=== PATIENT | female | born 1985 | race Caucasian/White ===

== ENCOUNTER 2024-02-15 23:13 | Emergency (ER) | payer OTHER ==
--- OUTSIDE RECORDS SUMMARY | 2024-02-15 23:17 | XMS REPORT | Continuity of Care Document ---
Author Name Unknown Address [address] [facility] [address] [place] [address] [facility] thconnect Address [address] [facility]. [address] [place] [address] Care Team Providers Care Plastic Surgery Nurse Name Role Phone Evelny Medina Attending Clinician Unavailable Koko Morales Attending Clinician Don dcintransitionlmcobgyn Attending Clinician UnaBrandy Vergara Attending Clinician Unavail Derek Burrell Attending Clinician Unavailable Jazmín Sabillon Attending Clinician Unavailable Shelly Savage I Attending Clinician Serafin Ramirez Attending Clinician Lara Leone Attending Clinician Jessica Hathaway Attending Clinician Sally Petersen Attending Clinician Unavailable Serafin Garber Attending Clinician Brandy Junior Attending Clinician Unavail eliseo Payers Payer Name Policy Type Policy Number Effective Date Expirati on Date Source Self Pay P NONE Medicaid [id number] [facility] Problems Condition Name Condition Details Condition Category Status Onset Date Resolution Date Last Treatment Date Treating Clinician Comments Source Smoker Smoker Problem Active [facility] [id number] History of hypothyroi dism Problem Active [facility] [id number] Acquired hypothyroi dism Problem Active [facility] [id number] DANA (generaliz ed anxiety disorder) Problem Active [facility] [id number] Exposure to strep throat Problem Active [facility] Umbilical hernia Umbilical hernia Problem Active [facility] [id number] History of umbilical hernia Problem Active [facility] [id number] Painful menstrual periods Problem Active [facility] [id number] Mood disorder Problem Active [facility] Allergies, Adverse Reactions, Alerts Allergy Name Allergy Type Status Severity Reaction(s) Onset Date Inactive Date Treating Clinician Comments Source Penicill ins Allergy to substanc e Active 11-20 13:14: 03 [facility] amoxicil mignon Allergy to substanc e Active 11-20 13:14: 03 [facility] Penicill ins Allergy to substanc e Active 11-20 13:14: 03 [facility] Penicill ins DA Active U throat swelling 11-20 00:00: 00 [facility] [place] amoxicil mignon DA Active U throat swelling 11-20 00:00: 00 [facility] penicill in V penicill in V Active Unknown [facility] penicill in G penicill in G Active Unknown [facility] amoxicil mignon amoxicil mignon Active Unknown [facility] Social History Social Habit Start Date Stop Date Quantity Comments Source History of Tobacco Use [facility] Sex Assigned At 1985 00:00:00 1985 00:00:[address] [facility] Smoking Status Start Date Stop Date Source Unknown if ever smoked . [facility] Former Smoker 2021-02-22 00:00:00 2021-02-22 00:00:00 [facility] Medications Ordered Medication Name Filled Medication Name Start Date Stop Date Current Medication? Ordering Clinician Indication Dosage Frequency Signature (SIG) Comments Components Source Ondansetron 4 MG Ondansetron 4 MG 02-22 00:00: 00 No 1{table t_on_ e_tongu e_and_a llow_to _dissol ve} QID Ondansetro n [address] [facility] Cefdinir Cefdinir 00:00: 00 Yes Sally Lokey [address] [facility] Zithromax Z-Christopher Zithromax Z-Christopher 00:00: 00 Yes Sally Lokey 2 tablets on the first day, then 1 tablet daily for [address] [facility] Ativan Ativan 2017-09 00:00: 00 Yes Sally Lokey 1 tablet as needed [facility] Levothyroxi ne Sodium 02-13 13:58: 18 No 50MCG Every Morning [facility] Levothyroxi ne Sodium 02-12 23:00: 00 No 50MCG Every Morning [facility] Sed472/Iron Fum/Folic/D ocusate ( 19) 1 TABLET Tablet 02-12 23:00: 00 No 1TABLET Daily [facility] Levothyroxi ne Sodium Levothyroxi ne Sodium 01-01 00:00: 00 Yes Sally Lokey 1 tablet on an empty stomach in the morning [facility] Yes Sally Lokey [address] [facility] Levothyroxi ne Sodium Levothyroxi ne Sodium No Levothyrox ine Sodium [facility] Vital Signs Vital Name Observation Time Observation Value Comments S ource weight 2021-02-22 11:45:00 179.0 [lb_av] [facility] height 2021-02-22 11:45:00 64 [in_i] [facility] bmi 2021-02-22 11:45:00 30.72 kg/m2 [facility] heart rate 2021-02-22 11:45:00 75 /min [facility] temperature 2021-02-22 11:45:00 97.1 [degF] [facility] oximetry 2021-02-22 11:45:00 98 % [facility] respiratory rate 2021-02-22 11:45:00 18 /min [facility] blood pressure systolic 2021-02-22 11:45:00 131 mm[Hg] [facility] blood pressure diastolic 2021-02-22 11:45:00 80 mm[Hg] [facility] WEIGHT 2018-02-13 14:57:00 77.975807 kg HEIGHT 2018-02-13 14:57:00 162.56 cm Procedures Procedure Date / Time Performed Performing Clinicia n Source US Venous Doppler Lt Unilat 2021-09-08 14:50:00 [facility] Encounters Start Date/Time End Date/Time Encounter Type Admission Type Attending Clinicians Care Facility Care Department Encounter ID Source 2023-09-19 16:50:00 Outpatient Gema Medinay [facility] [id number] [facility] 2023-05-25 14:52:01 Outpatient Koko Morales [facility] HP[facility] [id number] [facility] 2023-03-23 10:19:00 Outpatient Carol Evelyn [facility] HP[facility] [id number] [facility] 2022-06-22 16:13:03 Outpatient lc.intransi tionlmcobgy n [facility] [id number] [facility], [facility] 2021-09-29 13:40:58 Outpatient STLS STLS [id number] [facility] 2021-09-29 13:17:00 Outpatient STLS [facility] [id number] [facility] 2021-09-29 11:16:04 Outpatient Brandy Hunter [facility] [id number] [facility] 2023-09-11 15:39:00 2023-09-11 17:25:00 Emergency ER Derek Loza [facility] [id number] [facility] 2023-09-11 15:39:00 2023-09-11 17:25:[address] [facility] [id number] [address] [place] [address] 2021-09-08 12:26:00 2021-09-08 16:15:00 Emergency ER Jazmín Sabillon [facility] [id number] [facility] 2021-09-08 12:26:00 2021-09-08 16:15:[address] [facility] [id number] [facility]) 2021-09-08 12:26:00 2021-09-08 16:15:00 Departed Emergency [id number] [facility] [id number] [facility]) 2021-02-22 00:00:00 2021-02-22 00:00:00 Office Visit, Est Pt., Level 3 [facility] [id number] [facility] 2021-02-18 21:04:00 2021-02-19 00:25:00 Emergency ER Shelly Savage [facility] [id number] [facility] 2021-01-12 10:56:00 2021-01-12 11:55:00 Emergency ER Serafin Charles [facility] [id number] [facility] 2020-10-01 11:05:00 2020-10-01 13:41:00 Emergency ER Lara Hennessy [facility] [id number] [facility] 2020-07-21 10:05:00 2020-07-21 10:06:00 Outpatient R Jessica Livingston [facility] [id number] [facility] 2019-11-30 11:39:00 2019-11-30 11:39:00 Outpatient R CherrySally [facility] [id number] [facility] 2019-11-30 11:15:00 2019-11-30 11:15:00 Outpatient [facility] [id number] [facility] 2018-02-23 06:08:00 2018-02-23 13:32:00 Outpatient Serafin Varela [facility] [id number] [facility] 2018-02-13 14:37:00 2018-02-13 14:38:00 Outpatient Serafin Varela [facility] [id number] [facility] 2018-01-10 09:13:00 2018-01-10 09:14:00 Outpatient Brandy Smith [facility] [id number] [facility] Results Test Description Test Time Test Comments Results Result Co mments Source Chemistry - [id number] 15:36:00* Test Item Value Reference Range Interpretation Comme nts Chemistry - Specials (test code = BHCGST) Negative NEGATIVE Method of s ensitivity- Indeterminant: results should be repeated after 48-72 hrs Positive: results may be detected as early as 1 day after the first missed menses. [id number] 15:34:00* Test Item Value Reference Range Interpretation Comme nts Hematology (test code = WBCT) 8.2 thou/uL 4.8-10.8 N Hematology (test code = RBCT) 4.86 mill/uL 4.20-5.40 N Hematology (test code = HGBT) 14.5 g/dL 12.0-16.0 N Hematology (test code = HCTT) 41.0 % 36.0-47.0 N Hematology (test code = MCV) 84.4 fl 81.0-99.0 N Hematology (test code = MCH) 29.8 pg 27.0-31.0 N Hematology (test code = MCHC) 35.3 g/dL 32.0-36.0 N Hematology (test code = RDW) 11.5 % 11.5-14.5 N Hematology (test code = PLTT) 327 thou/uL 130-400 N Hematology (test code = MPV) 7.2 fL 7.4-10.4 L Hematology (test code = %NEUT) 58.8 % 42.0-75.0 N Hematology (test code = %LYMPH) 33.3 % 21.0-51.0 N Hematology (test code = %MONO) 5.8 % 0.0-10.0 N Hematology (test code = %EOS) 1.7 % 0.0-10.0 N Hematology (test code = %BASO) 0.3 % 0.0-1.0 N Hematology (test code = NEUT#) 4.8 thou/uL 1.40-6.50 N Hematology (test code = LYMPH#) 2.8 thou/uL 1.20-3.40 N Hematology (test code = MONO#) 0.5 thou/uL 0.11-0.59 N Hematology (test code = EOS#) 0.1 thou/uL 0.0-0.7 N Hematology (test code = BASO#) 0.0 thou/uL 0.0-0.2 N US Venous Doppler Lt Unilat [facility] BR[facility]AN[facility]: LORETTA CROOK : 1985 Sex: [facility] Pt Name: LORETTA CROOK [address] Phys:Jazmín Sabillon NP [place], [place] [address] : 1985 Age: 36 SEX:F [phone] Exam Date: 09/08/21 Status: REG ER Acct: [id number] Loc: ERS Pt Unit #: [id number] Report #: [id number] CC: Jazmín Sabillon NP ULTRASOUND REPORT Order # Category/Exam [id number] ULT/US Venous Doppler Lt [facility] ([id number]): . Results EXAM: Left lower extremity venous Doppler HISTORY: Left lower extremity pain and swelling. Tingling sensation for last 3 days. FINDINGS: Grayscale, color-flow, Doppler evaluation, spectral analysis of the left lower extremity venous structures is performed with 2-D imaging. Theleft common femoral, superficial femoral, popliteal, posterior tibial, proximal greater saphenous and profunda femoral veins are imaged. Mid left femoral vein not well visualized on grayscale imagingwhich limits evaluation for lumen compressibility, but there is normal flow and augmentation. Thereis normal luminal compressibility, flow, and augmentation in the visualized deep venous structures of the left lower extremity. IMPRESSION: Limited evaluation of the mid left femoral vein due to difficulty in visualization on grayscale imaging, and this limits evaluation for nonocclusive thrombus. There is no evidence of an occlusive DVT in the mid left femoral vein. There is otherwise no evidence of a deep vein thrombosis in the visualized deep venous structures left lower extremity. Reported By: Ajith Guillermo MD Electronically Signed Date/Time: 09/08/21 1512 Technologist: AS2 Dictated Date/Time: 09/08/21 1509 Transcribed Date/Time: XR Tib Fib Lt Leg 2 View [facility] BR[facility]OR[facility]TA CROOK : 1985 [facility] Pt Name: LORETTA CROOK [address] Phys:Alexandro Owens MD *r [place], [place] [address] : 1985 Age: 35 SEX:F [phone] Exam Date: 02/18/21 Status: REG ER Acct: [id number] Loc: [facility] Pt Unit #: [id number] Report #: [id number] CC: Alexandro Owens MD *r IMAGING SERVICES REPORT Order # Category/Exam [id number] RAD/XR Tib Fib Lt Leg 2 View ([id number]): . Results XR Tib Fib Lt Leg 2 View History: Injury Comparison: None. Findings: Bone island distal tibial metaphysis. No acute displaced fracture or malalignment. Impression: No acute osseous abnormality. Reported By: LARA HADLEY Electronically Signed Date/Time: 02/18/212256 Technologist: Twin Date/Time: 02/18/212255 Transcribed Date/Time:XR Ankle Lt 3 View [facility] ST[facility]OR[facility]TA CROOK : 1985 [facility] Pt Name: LORETTA CROOK [address] Phys:Alexandro Owens MD *r [place] [address] : 1985 Age: 35 SEX:F [phone] Exam Date: 02/18/21 Status: REG ER Acct: [id number] Loc: ERS Pt Unit #: [id number] Report #: [id number] CC: Alexandro Owens MD *r IMAGING SERVICES REPORT Order # Category/Exam [id number] RAD/XR Ankle Lt 3 View STANDARD ([id number]): . Results XR Ankle Lt 3 View STANDARD History: Injury Comparison: Radiograph 2016 Findings: No acute displaced fracture or malalignment. Bone island distal tibial metaphysis. No lateral talar shift. Fifth metatarsal tuberosity is intact. Impression: No acute osseous abnormality. Reported By: LARA HADLEY Electronically Signed Date/Time: 02/18/212256 Technologist: DEAN Dictated Date/Time: 02/18/212256 Transcribed Date/Time:XR Tib Fib Rt Leg 2 [facility]PERR[facility] STAROdessame: LORETTA CROOK : 1985 Sex: [facility] Pt Name: LORETTA CROOK [address] Phys:Alexandro Owens MD *r [place] [phone] : 1985 Age: 35 SEX:F [phone] Exam Date: 02/18/21 Status: REG ER Acct: [id number] Loc: ERS Pt Unit #: [id number] Report #: [id number] CC: Alexandro Owens MD *r IMAGING SERVICES REPORT Order # Category/Exam [id number] RAD/XR Tib Fib Rt Leg 2 View ([id number]): . Results XR Tib Fib Rt Leg 2 View History: Injury Comparison: None. Findings: Noacute displaced fracture or malalignment. Soft tissues are normal. Impression: No acute osseous abnormality. Reported By: LARA HADLEY Electronically Signed Date/Time: 02/18/212257 Technologist: DEAN Dictated Date/Time: 02/18/212257 Transcribed Date/Time:US Pelvic Transvag W [facility]CH[facility] CR[facility] : 1985 Sex: F Pt Name: LORETTA CROOK [address] [facility]. Phys: Jessica Livingston, DAMION [place] [address] :1985 Age: 34 SEX:F [phone] Exam Date: 07/21/20 Status: REG CLI Acct: [id number] Loc: BICULT Pt Unit #: [id number] Report #: [id number] CC: Jessica Livingston FNP ULTRASOUND REPORT Order # Category/Exam [id number] ULT/US Pelvic Transvag W Doppler ([id number]): . Results PELVIC ULTRASOUND INCLUDING TRANSABDOMINAL AND TRANSVAGINAL AND VASCULAR DUPLEX WITH COLOR AND SPECTRAL DOPPLER IMAGING: HISTORY: Irregular menses. FINDINGS: Uterus measures 9.3 x 5.8 x 4.7 cm. Endometrium 0.8 cm. Right ovary measures 3.3 x 2.9 x 2.4 cm. Left ovary 3.0 x 2.5 x 2.2 cm. No evidence for abnormal fluid collection. No intrauterine mass. Vascular flow documented to both ovaries. No evidence for ovarian torsion. IMPRESSION: Somewhat thickened endometrium at 0.8 cm. Borderline to minimally enlarged ovaries bilaterally. No focal mass or abnormal fluid collection. POS: [facility] Reported By: Jimbo Yusuf MD Electronically Signed Date/Time: 07/21/20 1615 Technologist: ALON Dictated Date/Time: 07/21/20 1117 Transcribed Date/Time: 07/21/20 1354XR [facility] LORETTA CROOK [address] [place] [address] Phys: [place] [address] : 1985 Age: 34 SEX:F [phone] Exam Date: 11/30/19 Status: REG REF Acct: [id number] Loc: [facility] Pt Unit #: [id number] Report #: [id number] CC: Sally Carey NP IMAGING SERVICES REPORT Order # Category/Exam [id number] RAD/XR Foot Lt 3 View STANDARD ([id number]): . R esults Exam: XR Foot Lt 3 View STANDARD HISTORY: Left foot pain. Patient unable to bear weight. COMPARISON: None FINDINGS: No acute fracture, dislocation, or other acute osseous abnormality is identified. IMPRESSION: No acute osseous abnormality is identified. Reported By: Ajith Guillermo MD Electronically Signed Date/Time: 11/30/19 1206 Technologist: EM Dictated Date/Time: 11/30/19 1206 Transcribed Date/Time: Notes Date/Time Note Provider Source 2018-02-23 11:25:00 [id number] [id number]+KyfAmHZnDKolwquP5952-02- 22T11:25:00[facility] Name: LORETTA CROOK Hoot.Me : 1985, Age: 32, Sex: [place] [id number] Unit #: [id number], Status: [facility] [phone] [place] [facility] [place] Dict Dr.: Serafin Garber MD Admission Date: Report #: [id number] Discharge Date: 02/23/18 CC: Serafin Garber MD, Patricia MD OPERATIVE NOTE DATE OF PROCEDURE: 02/23/2018 PREOPERATIVE DIAGNOSIS: Umbilical hernia, diastasis recti. POSTOPERATIVE DIAGNOSIS: Umbilical hernia, diastasis recti. PROCEDURE: Robotic repair of umbilical hernia with imbrication of fascia for diastasis recti, 9 cm round Ventralight mesh, reinforcement of primary fascial closure. SURGEON: Dr. Serafin Garber ANESTHESIA: General. Local 0.5% Marcaine with epinephrine, 30 mL, and 0.25% Marcaine with epinephrine, 20 mL used. DESCRIPTION OF PROCEDURE: The patient was taken to the operating room where under general anesthesia in the supine position, abdomen was prepared with ChloraPrep, draped in routine fashion. Local anesthetic infiltrated into the skin and subcutaneous tissue about each port site. A subxiphoid incision made and 11 port placed after pneumoperitoneum to 15 mmHg obtained with the Veress needle. There was falciform ligament surrounding the port and the lateral subcostal incision made right and left, and 8 mm ports placed and then laparoscope placed through these ports and then supplemental 5 mm ports placed under laparoscopic visualization in the right lateral abdomen, mid, and lower abdomen and laparoscopic was inserted, taking down the falciform ligament about the port to allow visualization as I could not visualize this due to the dependent falciform. Once this was taken down, the robot was redocked and robotic hernia undertaken. There is quite a bit of fatty tissue about the umbilicus taken down with cautery energy source. The fascial defect was about 2 cm and fatty tissue cleared from this from the subcutaneous tissue and excised with the cautery. At this point, the fascial defect closed with 0 V-Loc suture. Once this was accomplished, the pneumoperitoneum was reduced to 11 mmHg and 0 V-Loc suture used to imbricate the fascia vertically about the umbilicus for about 8-10 cm. Once this was accomplished, the Ventralight mesh was rolled, placed into the abdominal cavity and secured circumferentially with 3-0 V-Loc suture. Once it was secured, the mesh was noted to lie in good position. The umbilicus closure was secured and pneumoperitoneum reduced. All instruments removed and under laparoscopic visualization of the subxiphoid, 11 mm port site and fascia approximated with 0 Vicryl GraNee needle. Pneumoperitoneum and all instruments removed and all skin incisions approximated with interrupted subdermal 4-0 Monocryl and DermaGlue applied. Reported By: Serafin Garber MD Electronically Signed Date/Time: 02/25/18 0923 Dictated Date/Time: 02/23/18 1103 Transcribed Date/Time: 02/23/18 1124 Hand Worker: GALO OPOperative reportIMEDX.Moris YzuhRiigsGsdn4085-48-89Q44:25:00OPERATIVE [id number] for patient Raffaele RosasLajtttbEHQEJKCJYIYY2182-11-85K82:24:52 Serafin Garber STLSJH 2018-02-19 09:27:00 [id number]+RIHP/kvyVrbu [id number]+S866dgMfakOW631320-92- 18T09:27:00[facility] Name: LORETTA CROOK Hoot.Me : 1985, Age: 32, Sex: Alicia [place] [phone] Unit #: [id number], Status: [place] [facility] [place] [phone] [place] [facility] [place] Dict DrAgueda: Serafin Garber MD Admission Date: Report #: Discharge Date: CC: Serafin Garber MD, Patricia MD HISTORY AND PHYSICAL REPORT HISTORY OF PRESENT ILLNESS: Tristan Crook is a 32-year-old female, 171 pounds, 64 inches, 29.3 BMI, 4, para 5, delivering twins, one years of age, 7 and 5 years of age and 9-year-old twins who presents with an umbilical hernia that is painful to her. She has tried to lose her weight, but has had difficulty doing this. She stopped smoking over a year ago. She has quit drinking carbonated beverages. She has tried to eat right, but is having trouble losing her weight. She would like to be about 130 pounds. 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 She was seeing another surgeon regarding umbilical hernia which she was surprised to find that she had. She has been told she has diastasis recti. Her special education tutor who delivered her last child has moved out of town and she informs me that an ultrasound performed in the office reveals changes communicated to her as diastasis recti. These changes extend from below the umbilicus to above, she was told that to tend to this problem would improve her abdominal appearance and decrease her pain and then she could work on weight loss afterwards. ALLERGIES: PENICILLIN products. TOBACCO: None. ALCOHOL: None. PAST SURGICAL HISTORY: Tonsillectomy, 4 C-sections. PAST MEDICAL HISTORY: Noncontributory. REVIEW OF SYSTEMS: Ten point noncontributory. PHYSICAL EXAMINATION: VITAL SIGNS: Weight 171 pounds, 64 inches, 29.38 BMI, 131/50, 93 heart rate, 97.3 degrees. HEENT: Unremarkable. LUNGS: Clear to auscultation. CARDIAC: Regular rate and rhythm without murmur or gallop. ABDOMEN: Soft, nontender, slightly protuberant. Umbilical hernia, reducible. Defect approximately 2 cm. Lying Valsalva and sit up position I cannot appreciate a true diastasis recti. EXTREMITIES: Unremarkable. No edema. NEUROLOGIC: Intact. LYMPH: No lymphadenopathy in neck, groins, axilla. ASSESSMENT AND PLAN: Umbilical hernia. We will plan mesh repair and will evaluate her intraoperatively to plan diastasis recti repair, possibly if indicated. She understands the risk and benefits including infection, bleeding, reoperation, recurrence of her diastasis recti if present and consents. She understands I cannot guarantee that durability of a diastasis recti repair if performed. She understands she will need to make continued dietary changes and efforts and activity lifestyle changes to ensure weight reduction that surgery will not result in weight reduction or appearance of her abdominal protuberance. : 1985 Reported By: Serafin Garber MD Electronically Signed Date/Time: 02/20/18 0828 Dictated Date/Time: 02/13/18 1357 Transcribed Date/Time: 02/13/18 1412 Hand Worker: VIKA FARAHHistory and physical examinationTTScott Dumonta2018-06-18T09:27:00HISTORY AND PHYSICAL [id number] for patient Serafin RosasMaiqavsJINOBWJGEIBG7882-33-57I30:30:28 Serafin Garber STLSJH
[2024-02-15 23:52] LABS: Absolute Basophils 0.1 K/uL (0-0.5); Absolute Eosinophils 0.1 K/uL (0-0.5); Absolute Lymphocytes (CBC) 0.8 K/uL (0.7-4.9); Absolute Monocytes 0.8 K/uL (0.1-1.3); Absolute Neutrophil 8.8 K/uL (1.8-8.0); Basophils % 0.6 % (0-1.3); Eosinophils % 0.7 % (0-4.4); Hematocrit 31.1 % (36.0-45.0); Hemoglobin 10.7 g/dL (12.0-15.0); Lymphocytes % 7.8 % (15.3-44.8); MCH 27.6 pg (27.0-35.0); MCHC 34.4 g/dL (32.0-36.0); MCV 80.4 fL (80-100); MPV 7.5 fL (7.6-11.3); Monocytes % 7.2 % (3.3-12.3); Neutrophils % 83.7 % (41.7-73.7); Nucleated Red Blood Cells % 0.1 % (0-0); Platelets 303 thou/uL (152-406); RBC Red Blood Cell Count 3.87 M/uL (3.86-4.86)
[2024-02-16 00:08] LABS: Albumin 3.3 g/dL (3.4-5.0); Albumin/Globulin Ratio 0.9 (1.1-1.8); Alkaline Phosphatase 77 U/L (45-117); Anion Gap 9.3 mEq/L (5.0-15.0); BUN Blood Urea Nitrogen 12 mg/dL (7-18); Bicarbonate 24 mEq/L (21-32); Bilirubin Total 0.6 mg/dL (0.2-1.0); Globulin 3.7 g/dL (2.3-3.5); Glomerular Filtration Rate 107 ml/min (=/>90); Glucose Level 114 mg/dL (74-106); Lipase 30 U/L (13-75); Potassium 3.3 mEq/L (3.5-5.1); Sodium Level 135 mEq/L (136-145)
[2024-02-16 00:13] LABS: ALT/SGPT < 14 U/L (13-56); AST/SGOT < 10 U/L (15-37)
[2024-02-16 00:22] LABS: Specific Gravity 1.007 (1.005-1.030); Sqamous Epithelial <5 /HPF (None Seen); Urine Bacteria None Seen /HPF (<20); Urine Bilirubin NEGATIVE (Negative); Urine Blood Trace (Negative); Urine Clarity Turbid (Clear); Urine Color Colorless (Yellow); Urine Culture Reflex Order NOT NEEDED; Urine Glucose NEGATIVE (Negative); Urine Ketones NEGATIVE (Negative); Urine Microscopic Reflex YN ORDER UMIC; Urine Nitrite NEGATIVE (Negative); Urine Protein NEGATIVE (Negative); Urine RBC <5 /HPF (None Seen); Urine Urobilinogen Normal (Normal); Urine WBC <5 /HPF (<5); Urine WBC Clump Rare /HPF (None Seen); Urine Yeast (Budding) Trace /HPF (None Seen); Urine pH 5.5 (5.0-7.0)
[2024-02-16] MEDS ORDERED: KETOROLAC 30 MG/ML INJ ONE (00:31)
[2024-02-16] MEDS ORDERED: CEFTRIAXONE 1000 MG/VIAL ONE (00:31)
[2024-02-16] MEDS ORDERED: NA CHLORIDE 0.9% 2,000 ML ONE (00:32)
[2024-02-16] MEDS ORDERED: MORPHINE 4 MG/ML SYR ONE (00:32)
[2024-02-16] MEDS ORDERED: FAMOTIDINE 20 MG/2 ML VIAL IV ONE (00:32)
[2024-02-16] MEDS ORDERED: METRONIDAZOLE 500mg IVPB 500 MG/100 ML BAG IV ONE (00:33)
--- NOTE | 2024-02-16 02:23 | EDPHYS ---
Physician Documentation [facility] Name: Jannie Crook Age: 38 yrs Sex: Female : 1985 Arrival Date: 02/15/2024 Time: 23:13 Bed 19 Private MD: ED Physician Dominguez Tao HPI: 02/14 23:20 This 38 yrs old Female presents to ER via Unassigned with complaints of sp4 Fever, Low Back Pain. 02/15 02:16 48-year-old female no wound no significant past medical history presents with acute sp4 onset left upper back pain associated with fever at home. . 02:17 Patient reports symptoms started 2 days ago other associated body aches and chills.. 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 - Infectious Disease History:: Denies. - Social history:: Patient/guardian denies using Smoking status: unknown. - Family history:: not pertinent. ROS: 02/15 02:17 Constitutional: Positive fever, positive chills, positive left lower back pain, sp4 positive feeling unwell. Positive body aches Eyes: Negative for injury, pain, redness, and discharge, ENT: Negative for injury, pain, and discharge, All other systems are negative, Exam: 02:17 Constitutional: This is a well developed, well nourished patient who is awake, alert, sp4 and in no acute distress. Head/Face: Normocephalic, atraumatic. Eyes: Pupils equal round and reactive to light, extra-ocular motions intact. Lids and lashes normal. Conjunctiva and sclera are not injected. Cornea within normal limits. Periorbital areas with no swelling, redness, or edema. ENT: Nares patent. No nasal discharge, no septal abnormalities noted. Tympanic membranes are normal and external auditory canals are clear. Oropharynx with no redness, swelling, or masses, exudates, or evidence of obstruction, uvula midline. Mucous membranes moist. Neck: Trachea midline, no thyromegaly or masses palpated, and no cervical lymphadenopathy. Supple, full range of motion without nuchal rigidity, or vertebral point tenderness. Chest/axilla: Normal chest wall appearance and motion. Nontender with no deformity. No lesions are appreciated. Cardiovascular: Regular rate and rhythm with a normal S1 and S2. No gallops, murmurs, or rubs. Normal PMI, no JVD. No pulse deficits. Respiratory: Lungs have equal breath sounds bilaterally, clear to auscultation and percussion. No rales, rhonchi or wheezes noted. No increased work of breathing, no retractions or nasal flaring. Abdomen/GI: Soft, with normal bowel sounds. No distension or tympany. No guarding or rebound. No evidence of tenderness throughout. Back: No spinal tenderness. No costovertebral tenderness. Skin: Warm, dry with normal turgor. Normal color with no rashes, no lesions, and no evidence of cellulitis. MS/ Extremity: Pulses equal, no cyanosis. Neurovascular intact. Full, normal range of motion. Neuro: Awake and alert, GCS 15, oriented to person, place, time, and situation. Cranial nerves II-XII grossly intact. Motor strength 5/5 in all extremities. Sensory grossly intact. Psych: Awake, alert, with orientation to person, place and time. Behavior, mood, and affect are within normal limits Vital Signs: 02/14 23:17 BP 131 / 88; Pulse 111; Resp 19; Temp 102.6; Pulse Ox 100% on R/A; Weight 60.78 kg; 8 Height 5 ft. 4 in. ; Pain 04/13; 02/15 00:20 BP 121 / 73; Pulse 96; Resp 17 S; Pulse Ox 100% on R/A; ha1 01:20 BP 123 / 73; Pulse 89; Resp 17 S; Pulse Ox 100% on R/A; ha1 01:36 Temp 98.2(O); ha1 02:20 BP 127 / 76; Pulse 87; Resp 17 S; Pulse Ox 100% on R/A; ha1 02/14 23:17 Body Mass Index 23.00 (60.78 kg, 162.56 cm) [facility] 02/14 23:17 Pain Scale: Adult [facility] Antonio Coma Score: 02:17 Eye Response: spontaneous(4). Motor Response: obeys commands(6). Verbal Response: sp4 oriented(5). Total: 15. MDM: 02/14 23:25 Patient medically screened. sp4 02/15 02:06 ED course: TECHNIQUE: CT of the chest, abdomen and pelvis performed following IV sp4 administration of iodinated contrast. This exam was performed according to our departmental dose-optimization program, which includes automated exposure control, adjustment of the mA and/or kV according to patient size and/or use of iterative reconstruction technique. FINDINGS: Chest: Thyroid:No abnormalities of the visualized thyroid. Great Vessels:Aberrant origin right subclavian artery coursing posterior to the esophagus. Thoracic Aorta:No abnormalities of the thoracic aorta identified. Pulmonary arteries:No central filling defects. Heart:No cardiomegaly, significant pericardial effusion, or coronary artery atherosclerosis Lymph Nodes:No enlarged mediastinal lymph nodes identified. Esophagus:No abnormalities of the esophagus identified Other:No additional findings. Lungs:No airspace opacities identified. Pleura:No pleural effusion or pneumothorax. Trachea/Airways:No abnormalities of the visualized trachea or airways. Abdomen: Liver: The liver has normal size and density. Gallbladder: No calcified gallstones. Spleen, Pancreas, and Adrenal Glands: Splenomegaly. Kidneys: No hydronephrosis or obstructing ureteral calculus. Wedge-shaped defect in the superior pole of the left kidney with adjacent inflammatory change. Vasculature: The aorta and IVC have normal caliber and position. The portal vein is patent. The proximal visceral and renal arteries are patent. Stomach: The stomach and duodenum have normal course. Other: No free intraperitoneal air. Moderate amount of fluid in the pelvis. Pelvis: Bladder: Urinary bladder is unremarkable. Bowel: No dilated loops of large or small bowel. Moderate amount of stool. Appendix: Normal appendix. Pelvis:Uterus is not enlarged. 2.1 cm left ovarian corpus luteal cyst. No follow-up imaging for the structure recommended. Bones: Partial sacralization on the right at L5. IMPRESSION: 1. Wedge-shaped defect in the superior pole of the left kidney with adjacent inflammatory change. These findings could be seen with pyelonephritis. 2. Splenomegaly. 3. Moderate amount of fluid in the pelvis. Electronically signed by: Hugo Nagy DO 02/16/2024 01:22 AM. 02:19 Differential diagnosis: viral Infection, bacterial infection, URI, pneumonia UTI, sp4 gastroenteritis. Data reviewed: vital signs, nurses notes, old medical records, lab test result(s), radiologic studies, CT scan. Consideration of Admission/Observation Escalation of care including admission/observation considered. ED course: Patient does not have signs of UTI however there is signs of left pyelonephritis with wedge-shaped kidney defect. Concern for pyelonephritis possibly hematogenous spread. Will provide 10-day course of cephalexin and Flagyl. Will stressed the importance of return to the emergency room in case fever and pain increase or continue. . 02/14 23:21 Order name: CBC with Diff; Complete Time: 02:05 sp 02/14 23:21 Order name: CMP; Complete Time: 02:05 [facility] 02/14 23:21 Order name: Lipase; Complete Time: 02:05 [facility] 02/14 23:21 Order name: Test, Urine; Complete Time: 02:05 [facility] 02/14 23:21 Order name: Urinalysis w/ reflexes; Complete Time: 02:05 [facility] 02/14 23:36 Order name: Blood Culture Adult (2) [facility] 02/14 23:46 Order name: C-Reactive Protein; Complete Time: 02:05 [facility] 02/14 23:36 Order name: CT Chest, Abdomen, Pelvis - W/Contrast [facility] 02/14 23:21 Order name: IV Saline Lock; Complete Time: 23:39 [facility] 02/14 23:21 Order name: Labs collected and sent; Complete Time: 23:39 [facility] 02/14 23:59 Order name: NPO; Complete Time: 00:10 sp4 Administered Medications: 00:40 Drug: Famotidine IVP 20 mg IVP once; dilute with 10 mL 0.9% NaCl; give over 2 minutes ha1 Route: IVP; Site: right antecubital; 01:00 Follow up: Response: No adverse reaction; Marked relief of symptoms ha1 00:42 Drug: Ketorolac IVP 30 mg IVP once Route: IVP; Site: right antecubital; ha1 01:00 Follow up: Response: No adverse reaction; Marked relief of symptoms; Pain is decreased ha1 00:44 Drug: morphine IVP or IV 4 mg IVP once over 4 mins Route: IVP; Infused Over: 4 mins; ha1 Site: right antecubital; 01:00 Follow up: Response: No adverse reaction; Pain is decreased; RASS: Alert and Calm (0) ha1 00:45 Drug: Rocephin - Rocephin (cefTRIAXone) IVPB 1 grams IVPB once over 30 mins; (mix in 50 ha1 mL NS) Route: IVPB; Infused Over: 30 mins; Site: right antecubital; 01:00 Follow up: Response: No adverse reaction; IV Status: Completed infusion; IV Intake: [id number] 00:49 Drug: metroNIDAZOLE IVPB 500 mg 100 ml IVPB at 200 ml/hr once over 30 mins Volume: 100 ha1 ml; Route: IVPB; Rate: 200 ml/hr; Infused Over: 30 mins; Site: right antecubital; 01:49 Follow up: Response: No adverse reaction; IV Status: Completed infusion; IV Intake: ha1 100ml 00:50 Drug: NS 0.9% IV 1000 ml IV at 125 ml/hr continuous Route: IV; Rate: 125 ml/hr; Site: ha1 right antecubital; 02:45 Follow up: Response: No adverse reaction; IV Status: Completed infusion; IV Intake: ha1 500ml 00:51 Drug: NS 0.9% IV 1000 ml IV at 1 bolus Per protocol; 1000 mL bolus Route: IV; Rate: 1 ha1 bolus; Site: left antecubital; 02:40 Follow up: Response: No adverse reaction; IV Status: Completed infusion; IV Intake: ha1 1000ml 02:20 Drug: Ibuprofen PO 800 mg PO once Route: PO; ha1 02:52 Follow up: Response: No adverse reaction ha1 02:20 Drug: Cephalexin PO 500 mg PO once Route: PO; ha1 02:51 Follow up: Response: No adverse reaction ha1 02:20 Drug: Promethazine PO 25 mg PO once Route: PO; ha1 02:51 Follow up: Response: No adverse reaction ha1 02:20 Drug: [place] PO 10 mg-325 mg 1 tabs PO once Route: PO; ha1 02:51 Follow up: Response: No adverse reaction; Marked relief of symptoms ha1 Disposition Summary: 02/16/24 02:22 Discharge Ordered Notes: Location: Home sp4 Problem: new sp4 Symptoms: have improved sp4 Condition: Stable sp4 Diagnosis - Pyelonephritis acute sp4 - Fever presenting with conditions classified elsewhere sp4 Followup: sp4 - With: Prezas, Malcolm, DO - When: 7 - 10 days - Reason: Recheck today's complaints Discharge Instructions: - Discharge Summary Sheet sp4 - Pyelonephritis, Adult, [id number] sp4 Forms: - Work release form sp4 - Patient Portal Instructions sp4 Prescriptions: - acetaminophen-codeine 300-30 mg Oral tablet - take 1 tablet ORAL route every 6 hours PRN pain; 20 tablet; Refills: 0, Product sp4 Selection Permitted - Cephalexin 500 mg Oral Capsule - take 1 capsule ORAL route every 6 hours for 10 days; 40 capsule; Refills: 0, sp4 Product Selection Permitted - Flagyl 500 mg Oral Tablet - take 1 tablet ORAL route every 8 hours for 10 days; 30 tablet; Refills: 0, sp4 Product Selection Permitted - Ibuprofen 800 mg Oral tablet - take 1 tablet ORAL route every 6 hours As needed take with food; 30 tablet; sp4 Refills: 0, Product Selection Permitted - promethazine 25 mg Oral Tablet - take 1 tablet ORAL route every 6 hours As needed; 20 tablet; Refills: 0, sp4 Product Selection Permitted Signatures: Dispatcher [employer] EDMS Briana Reyes, ISABELLA RN ha1 Dominguez Tao MD MD sp4 Abram Baldwin RN RN lc8 Corrections: (The following items were deleted from the chart) 02/14 23:22 23:22 CBC+H.LAB.BRZ ordered. EDMS EDMS 23:22 23:22 COMPREHENSIVE METABOLIC PANEL+C.LAB.BRZ ordered. EDMS EDMS 23:22 23:22 LIPASE+C.LAB.BRZ ordered. EDMS EDMS 23:22 23:22 Test, Urine+UC.LAB.BRZ ordered. EDMS EDMS 23:22 23:22 Urinalysis+U.LAB.BRZ ordered. EDMS EDMS 23:45 23:36 C-REACTIVE PROTEIN+C.LAB.BRZ ordered. EDMS EDMS
--- NOTE | 2024-02-16 02:23 | ER ---
Nurse's Notes [facility] Name: Janine Crook Age: 38 yrs Sex: Female : 1985 Arrival Date: 02/15/2024 Time: 23:13 Bed 19 Private MD: Diagnosis: Pyelonephritis acute;Fever presenting with conditions classified elsewhere Presentation: 02/14 23:17 Chief complaint: Patient states: pt c/o left flank/ back pain that onset a couple days lc8 ago. reports fever, chills, body aches, and fever. 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 23:17 Coronavirus screen: Vaccine status: At this time, unable to obtain information related lc8 to travel outside the [place] Ebola Screen: No symptoms or risks identified at this time. Initial Sepsis Screen: Does the patient meet any 2 criteria? Temp <36.0*C (96.8*F)) or > 38.3*C (100.9*F). HR > 90 bpm. Yes Does the patient have a suspected source of infection? No. Patient's initial sepsis screen is negative. Risk Assessment: Do you want to hurt yourself or someone else? Patient reports no desire to harm self or others. Onset of symptoms was February 14, 2024. 23:17 Method Of Arrival: Ambulatory [facility] 23:17 Acuity: DANGELO 3 lc8 Triage Assessment: 23:17 General: Appears uncomfortable, ill, well groomed, well nourished, Behavior is calm, lc8 cooperative. 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 - Infectious Disease History:: Denies. - Social history:: Patient/guardian denies using Smoking status: unknown. - Family history:: not pertinent. Screenin:20 Abuse screen: Denies threats or abuse. Denies injuries from another. 8 23:20 [facility] ED Fall Risk Assessment (Adult) History of falling in the last 3 months, lc8 including since admission No falls in past 3 months (0 pts) Confusion or Disorientation No (0 pts) Intoxicated or Sedated No (0 pts) Impaired Gait No (0 pts) Mobility Assist Device Used No (0 pt) Altered Elimination No (0 pt) Score/Fall Risk Level 0 - 2 = Low Risk Oriented to surroundings, Maintained a safe environment, Hourly rounding (assess needs \T\ fall precautionary measures) done. Nutritional screening: No deficits noted. Tuberculosis screening: No symptoms or risk factors identified. Assessment: 23:20 General: Appears uncomfortable, ill, Behavior is calm, cooperative. lc8 23:20 Pain: Complains of pain in left flank Pain does not radiate. Pain currently is 8 out of lc8 10 on a pain scale. Quality of pain is described as sharp. Neuro: Level of Consciousness is awake, alert, obeys commands, Oriented to person, place, time, situation. Cardiovascular: Capillary refill < 3 seconds Patient's skin is warm and dry. Respiratory: Airway is patent Respiratory effort is even, unlabored, Respiratory pattern is regular, symmetrical. GI: No deficits noted. GI: Patient currently denies constipation, diarrhea, vomiting. :. : Denies burning with urination, pain urinary frequency, urgency. EENT: No deficits noted. Derm: No deficits noted. Musculoskeletal: Reports pt c/o left sided flank pain. denies urinary s/s. 02/15 00:20 Reassessment: Patient and/or family updated on plan of care and expected duration. Pain ha1 level reassessed. Patient is alert, oriented x 3, equal unlabored respirations, skin warm/dry/pink. 01:22 Reassessment: Patient and/or family updated on plan of care and expected duration. Pain ha1 level reassessed. Patient is alert, oriented x 3, equal unlabored respirations, skin warm/dry/pink. 02:20 Reassessment: Patient and/or family updated on plan of care and expected duration. Pain ha1 level reassessed. Patient is alert, oriented x 3, equal unlabored respirations, skin warm/dry/pink. Vital Signs: 02/14 23:17 BP 131 / 88; Pulse 111; Resp 19; Temp 102.6; Pulse Ox 100% on R/A; Weight 60.78 kg; lc8 Height 5 ft. 4 in. ; Pain 8/10; 02/15 00:20 BP 121 / 73; Pulse 96; Resp 17 S; Pulse Ox 100% on R/A; ha1 01:20 BP 123 / 73; Pulse 89; Resp 17 S; Pulse Ox 100% on R/A; ha1 01:36 Temp 98.2(O); ha1 02:20 BP 127 / 76; Pulse 87; Resp 17 S; Pulse Ox 100% on R/A; ha1 02/14 23:17 Body Mass Index 23.00 (60.78 kg, 162.56 cm) 8 02/14 23:17 Pain Scale: Adult lc8 Antonio Coma Score: 02:17 Eye Response: spontaneous(4). Motor Response: obeys commands(6). Verbal Response: sp4 oriented(5). Total: 15. ED Course: 02/14 23:16 Patient arrived in ED. gm2 23:20 Dominguez Tao MD is Attending Physician. sp4 23:20 Patient has correct armband on for positive identification. Bed in low position. Adult lc8 w/ patient. 23:20 Inserted saline lock: 22 gauge in right antecubital area, using aseptic technique. ha1 Blood collected. 23:27 Arm band placed on right wrist. ha1 23:39 CBC with Diff Sent. lc8 23:39 CMP Sent. lc8 23:39 Lipase Sent. lc8 23:39 Test, Urine Sent. lc8 23:45 Triage completed. lc8 02/15 00:10 Blood Culture Adult (2) Sent. lc8 00:59 CT Chest, Abdomen, Pelvis - W/Contrast In Process Unspecified. EDMS 01:32 Briana Reyes, ISABELLA is Primary Nurse. ha1 02:21 Malcolm Severino DO is Referral Physician. sp4 02:49 No provider procedures requiring assistance completed. IV discontinued, intact, ha1 bleeding controlled, No redness/swelling at site. Pressure dressing applied. 02:51 Provided Education on: medication administration . ha1 Administered Medications: 00:40 Drug: Famotidine IVP 20 mg IVP once; dilute with 10 mL 0.9% NaCl; give over 2 minutes ha1 Route: IVP; Site: right antecubital; 01:00 Follow up: Response: No adverse reaction; Marked relief of symptoms ha1 00:42 Drug: Ketorolac IVP 30 mg IVP once Route: IVP; Site: right antecubital; ha1 01:00 Follow up: Response: No adverse reaction; Marked relief of symptoms; Pain is decreased ha1 00:44 Drug: morphine IVP or IV 4 mg IVP once over 4 mins Route: IVP; Infused Over: 4 mins; ha1 Site: right antecubital; 01:00 Follow up: Response: No adverse reaction; Pain is decreased; RASS: Alert and Calm (0) ha1 00:45 Drug: Rocephin - Rocephin (cefTRIAXone) IVPB 1 grams IVPB once over 30 mins; (mix in 50 ha1 mL NS) Route: IVPB; Infused Over: 30 mins; Site: right antecubital; 01:00 Follow up: Response: No adverse reaction; IV Status: Completed infusion; IV Intake: [id number] 00:49 Drug: metroNIDAZOLE IVPB 500 mg 100 ml IVPB at 200 ml/hr once over 30 mins Volume: 100 ha1 ml; Route: IVPB; Rate: 200 ml/hr; Infused Over: 30 mins; Site: right antecubital; 01:49 Follow up: Response: No adverse reaction; IV Status: Completed infusion; IV Intake: ha1 100ml 00:50 Drug: NS 0.9% IV 1000 ml IV at 125 ml/hr continuous Route: IV; Rate: 125 ml/hr; Site: [place] right antecubital; 02:45 Follow up: Response: No adverse reaction; IV Status: Completed infusion; IV Intake: ha1 500ml 00:51 Drug: NS 0.9% IV 1000 ml IV at 1 bolus Per protocol; 1000 mL bolus Route: IV; Rate: 1 ha1 bolus; Site: left antecubital; 02:40 Follow up: Response: No adverse reaction; IV Status: Completed infusion; IV Intake: ha1 1000ml 02:20 Drug: Ibuprofen PO 800 mg PO once Route: PO; ha1 02:52 Follow up: Response: No adverse reaction ha1 02:20 Drug: Cephalexin PO 500 mg PO once Route: PO; ha1 02:51 Follow up: Response: No adverse reaction ha1 02:20 Drug: Promethazine PO 25 mg PO once Route: PO; ha1 02:51 Follow up: Response: No adverse reaction ha1 02:20 Drug: [place] PO 10 mg-325 mg 1 tabs PO once Route: PO; ha1 02:51 Follow up: Response: No adverse reaction; Marked relief of symptoms ha1 Medication: 02:50 VIS not applicable for this client. ha1 Intake: 01:00 IV: 50ml; Total: 50ml. ha1 01:49 IV: 100ml; Total: 150ml. ha1 02:40 IV: 1000ml; Total: 1150ml. ha1 02:45 IV: 500ml; Total: 1650ml. ha1 Outcome: 02:22 Discharge ordered by . loli 02:50 Discharged to home ambulatory, with family, ha1 02:50 Condition: stable 02:50 Discharge instructions given to patient, family, Instructed on discharge instructions, follow up and referral plans. medication usage, Demonstrated understanding of instructions, follow-up care, medications, Prescriptions given X five 02:53 Patient left the ED. ha1 Signatures: Dispatcher [employer] EDMS Briana Reyes RN RN ha1 Dominguez Tao MD MD sp4 Annalee Fox 2 Abram Baldwin RN RN lc8 Corrections: (The following items were deleted from the chart) 02:52 01:30 Response: No adverse reaction; IV Status: Completed infusion; IV Intake: 100ml ha1ha1
[2024-02-16] MEDS ORDERED: IBUPROFEN 400 MG TAB ONE (02:25)
[2024-02-16] MEDS ORDERED: PROMETHAZINE 25 MG TABLET ONE (02:25)
[2024-02-16] MEDS ORDERED: HYDROCODONE/APAP 10/325 TAB ONE (02:25)
[2024-02-16] MEDS ORDERED: CEPHALEXIN 250 MG CAP ONE (02:25)
[2024-02-16 03:16] VITALS: BP 127/76; TEMP 98.2; O2SAT 100
--- NOTE | 2024-02-16 11:48 | RAD REPORT ---
EXAM DESCRIPTION: CT - Chest Abdomen Pelvis W Cont - 02/16/2024 6:32 am CLINICAL HISTORY: Fever and flank pain COMPARISON: None Available. TECHNIQUE: CT of the chest, abdomen and pelvis performed following IV administration of iodinated co ntrast. This exam was performed according to our departmental dose-optimization program, which includ es automated exposure control, adjustment of the mA and/or kV according to patient size and/or use of iterative reconstruction technique. FINDINGS: Chest: Thyroid: No abnormalities of the visualized thyroid. Great Vessels: Aberrant origin right subclavian artery coursing posterior to the esophagus. Thoracic Aorta: No abnormalities of the thoracic aorta identified. Pulmonary arteries: No central filling defects. Heart: No cardiomegaly, significant pericardial effusion, or coronary artery atherosclerosis Lymph Nodes: No enlarged mediastinal lymph nodes identified. Esophagus: No abnormalities of the esophagus identified Other: No additional findings. Lungs: No airspace opacities identified. Pleura: No pleural effusion or pneumothorax. Trachea/Airways: No abnormalities of the visualized trachea or airways. Abdomen: Liver: The liver has normal size and density. Gallbladder: No calcified gallstones. Spleen, Pancreas, and Adrenal Glands: Splenomegaly. Kidneys: No hydronephrosis or obstructing ureteral calculus. Wedge-shaped defect in the superior pole of the left kidney with adjacent inflammatory change. Vasculature: The aorta and IVC have normal caliber and position. The portal vein is patent. The pro ximal visceral and renal arteries are patent. Stomach: The stomach and duodenum have normal course. Other: No free intraperitoneal air. Moderate amount of fluid in the pelvis. Pelvis: Bladder: Urinary bladder is unremarkable. Bowel: No dilated loops of large or small bowel. Moderate amount of stool. Appendix: Normal appendix. Pelvis: Uterus is not enlarged. 2.1 cm left ovarian corpus luteal cyst. No follow-up imaging for the structure recommended. Bones: Partial sacralization on the right at L5. IMPRESSION: 1. Wedge-shaped defect in the superior pole of the left kidney with adjacent inflammat ory change. These findings could be seen with pyelonephritis. 2. Splenomegaly. 3. Moderate amount of fluid in the pelvis. Electronically signed by: Hugo Nagy DO 02/16/2024 01:22 AM CDT RP [id number] Due to temporary technical issues with the PACS/Fluency reporting system, reports are being signed by the in house radiologists without review as a courtesy to insure prompt reporting. The interpreting radiologist is fully responsible for the content of the report.
== END 2024-02-16 02:53 | disposition home or self-care (01) ==
LOC: ER 23:13
DX: N10 Acute pyelonephritis (principal)
CPT/HCPCS: 96365; 96361; 87040 ×2; 85025; 81001; 36415; 81025; 83690; 80053; 86140; 71260; 74177; 96375; 99284; Q9967; Q0169; J7030; J0696

== ENCOUNTER 2024-10-06 20:29 | Emergency (ER) | payer OTHER, SELFPAY ==
--- OUTSIDE RECORDS SUMMARY | 2024-10-06 20:35 | XMS REPORT | Continuity of Care Document ---
Author Name Unknown Address [address] [facility] [address] [place] [address] [facility] thconnect Address [address] [facility] [address] [place] [address] Care Team Providers Care Pharmacy Technology Instructor Name Role Phone Evelyn Medina Attending Clinician Unavailable Koko Morales Attending [...] Date Source Self Pay P NONE Medicaid [place] [id number] [facility] Problems Condition Name Condition Details Condition Category Status Onset Date Resolution Date Last Treatment Date Treating Clinician Comments Source Smoker Smoker Problem Active [facility] [id number] History of hypothyroi dism Problem Active [facility] [id number] Acquired hypothyroi dism Problem Active [facility] ent [facility] [id number] DANA (generaliz ed anxiety disorder) Problem Active [facility] ent [facility] [id number] 105 Exposure to strep throat Problem Active [facility] Umbilical hernia Umbilical hernia Problem Active [facility] ent [facility] [id number] History of umbilical hernia Problem Active [facility] ent [facility] [id number] Painful menstrual periods Problem Active [facility] [id number] Mood disorder Problem Active [facility] Allergies, Adverse Reactions, Alerts Allergy Name Allergy Type Status Severity Reaction(s) Onset Date Inactive Date Treating Clinician Comments Source Penicill ins Allergy to substanc e Active 11-20 13:14: 03 [facility] amoxicil mignon Allergy to substanc e Active 11-20 13:14: 03 [facility] Penicill ins Allergy to substanc e Active 11-20 13:14: 03 [facility] Penicill ins DA Active U throat swelling 11-20 00:00: 00 [facility] amoxicil mignon DA Active U throat swelling 11-20 00:00: 00 [facility] penicill in V penicill in V Active Unknown [facility] ent [facility] penicill in G penicill in G Active Unknown [facility] ent [facility] amoxicil mignon amoxicil mignon Active Unknown [facility] Social History Social Habit Start Date Stop Date Quantity Comments Source History of Tobacco Use [facility] Sex Assigned At 1985 00:00:00 1985 00:00:[address] [facility] Smoking Status Start Date Stop Date Source Unknown if ever smoked [facility] Former Smoker 2021-02-22 00:00:00 2021-02-22 00:00:00 [facility] Medications Ordered Medication Name Filled Medication Name Start Date Stop Date Current Medication? Ordering Clinician Indication Dosage Frequency Signature (SIG) Comments Components Source Ondansetron 4 MG Ondansetron 4 MG 02-22 00:00: 00 No 1{table t__ e_tongu e_and_a llow_to _dissol ve} QID Ondansetro n 4 MG [facility] Cefdinir Cefdinir 00:00: 00 Yes Sally Lokey 1 capsule [facility] Zithromax Z-Christopher Zithromax Z-Christopher 00:00: 00 Yes Sally Lokey 2 tablets on the first day, then 1 tablet daily for 4 days [facility] Ativan Ativan 2017-09 00:00: 00 Yes Sally Lokey 1 tablet as needed [facility] Levothyroxi ne Sodium 02-13 13:58: 18 No 50MCG Every Morning [facility] Levothyroxi ne Sodium 02-12 23:00: 00 No 50MCG Every Morning [facility] Vyz144/Iron Fum/Folic/D ocusate ( 19) 1 TABLET Tablet 02-12 23:00: 00 No 1TABLET Daily [facility] Levothyroxi ne Sodium Levothyroxi ne Sodium 01-01 00:00: 00 Yes Sally Lokey 1 tablet on an empty stomach in the morning [facility] Yes Sally Lokey 1 tablet [facility] Levothyroxi ne Sodium Levothyroxi ne Sodium No Levothyrox ine Sodium [facility] Vital Signs Vital Name Observation Time Observation Value Comments S ource weight 2021-02-22 11:45:00 179.0 [lb_av] CH I [facility] height 2021-02-22 11:45:00 64 [in_i] [facility] bmi 2021-02-22 11:45:00 30.72 kg/m2 [facility] heart rate 2021-02-22 11:45:00 75 /min [facility] temperature 2021-02-22 11:45:00 97.1 [degF] [facility] oximetry 2021-02-22 11:45:00 98 % S [facility] respiratory rate 2021-02-22 11:45:00 18 /min [facility] blood pressure systolic 2021-02-22 11:45:00 131 mm[Hg] [facility] blood pressure diastolic 2021-02-22 11:45:00 80 mm[Hg] [facility] WEIGHT 2018-02-13 14:57:00 77.742289 kg HEIGHT 2018-02-13 14:57:00 162.56 cm Procedures Procedure Date / Time Performed Performing Clinicia n Source US Venous Doppler Lt Unilat 2021-09-08 14:50:00 [facility] Encounters Start Date/Time End Date/Time Encounter Type Admission Type Attending Clinicians Care Facility Care Department Encounter ID Source 2023-09-19 16:50:00 Outpatient Gema Medinay [facility] HPNT [id number] [facility] oint 2023-05-25 14:52:01 Outpatient Koko Morales [facility] HPNT [id number] [facility] 2023-03-23 10:19:00 Outpatient Carol Evelyn HPNT HPNT [id number] Health oint 2022-06-22 16:13:03 Outpatient lc.intransi tionlmcobgy n [facility] [id number] [facility] 2021-09-29 13:40:58 Outpatient [facility] [id number] [facility] 2021-09-29 13:17:00 Outpatient [facility] [id number] [facility] 2021-09-29 11:16:04 Outpatient Brandy Hunter [facility] [id number] [facility] 2023-09-11 15:39:00 2023-09-11 17:25:00 Emergency ER Derek Loza [facility] [id number] [facility] 2023-09-11 15:39:00 2023-09-11 17:25:[address] [facility] [id number] [address] [place] [address] 2021-09-08 12:26:00 2021-09-08 16:15:00 Emergency ER Jazmín Sabillon [facility] [id number] [facility] 2021-09-08 12:26:00 2021-09-08 16:15:[address] [facility] CY [facility] [id number] [facility]) 2021-09-08 12:26:00 2021-09-08 16:15:00 Departed Emergency [id number] [facility] [id number] [facility]) 2021-02-22 00:00:00 2021-02-22 00:00:00 Office Visit, Est Pt., Level 3 [facility] [id number] [facility] 2021-02-18 21:04:00 2021-02-19 00:25:00 Emergency ER Shelly Savage [facility] [id number] [facility] 2021-01-12 10:56:00 2021-01-12 11:55:00 Emergency ER Serafin Charles [facility] [id number] [facility] 2020-10-01 11:05:00 2020-10-01 13:41:00 Emergency ER Lara Hennessy [facility] [id number] [facility] 2020-07-21 10:05:00 2020-07-21 10:06:00 Outpatient R Jessica Livingston [facility] [id number] [facility] 2019-11-30 11:39:00 2019-11-30 11:39:00 Outpatient R Sally Carey [facility] [id number] [facility] 2019-11-30 11:15:00 2019-11-30 11:15:00 Outpatient [facility] [id number] [facility] 2018-02-23 06:08:00 2018-02-23 13:32:00 Outpatient Serafin Varela [facility] [id number] [facility] 2018-02-13 14:37:00 2018-02-13 14:38:00 Outpatient Serafin Varela [facility] [id number] [facility] 2018-01-10 09:13:00 2018-01-10 09:14:00 Outpatient Brandy Smith [facility] [id number] [facility] Results Test Description Test Time Test Comments Results Result Co mments Source Chemistry - [id number] 15:36:00* Test Item Value Reference Range Interpretation Comme nts Chemistry - Specials (test code = BHCGST) Negative NEGATIVE Method of s ensitivity- Indeterminant: results should be repeated after 48-72 hrs Positive: results may be detected as early as 1 day after the first missed menses. [id number] 15:34:00* Test Item Value Reference Range Interpretation [...] 0.0-0.2 N US Venous Doppler Lt Unilat [facility] BRYANName: LORETTA MORTON : 1985 [facility] Pt Name: LORETTA MORTON [address] [employer] Phys:Jazmín Sabillon NP [place] [address] : 1985 Age: 36 SEX:F [phone] Exam Date: 09/08/21 Status: REG ER Acct: [id number] Loc: ERS Pt Unit #: [id number] Report #: [id number] CC: Jazmín Sabillon NP ULTRASOUND REPORT Order # Category/Exam [id number] ULT/US Venous Doppler Lt [facility] ([id number]): . Results EXAM: Left lower extremity venous Doppler HISTORY: Left lower extremity pain andswelling. Tingling sensation for last 3 days. FINDINGS: Grayscale, color-flow, Doppler evaluation, spectral analysis of the left lower extremity venous structures is performed with 2-D imaging. The left common femoral, superficial femoral, popliteal, posterior tibial, proximal greater saphenous and profunda femoral veins are imaged. Mid left femoral vein not well visualized on grayscale imaging which limits evaluation for lumen compressibility, but there is normal flow and augmentation. There is normal luminal compressibility, flow, and augmentation in the visualized deep venous structures ofthe left lower extremity. IMPRESSION: Limited evaluation of [...] By: Ajith Guillermo MD Electronically Signed Date/Time: 09/08/211511 Technologist: PACO Dictated Date/Time: 09/08/21 150 Transcribed Date/Time:XR Tib Fib Lt Leg 2 View [facility] BRYANName: LORETTA MORTON : 1985 [facility] Pt Name: LORETTA MORTON [address] Phys:Alexandro Owens MD *r [place], [place] [address] : 1985 Age: 35 SEX:F [phone] Exam Date: 02/18/21 Status: REG ER Acct: [id number] Loc: ERS Pt Unit #: [id number] Report #: [id number] CC: Alexandro Owens MD *r IMAGING SERVICES REPORT Order # Category/Exam [id number] RAD/XR Tib Fib Lt Leg 2 View ([id number]): . Results XR Tib Fib Lt Leg 2 View History: Injury Comparison: None. Findings: Bone island distal tibial metaphysis. No acute displaced fracture or malalignment. Impression: No acute osseous abnormality. Reported By: LARA HADLEY Electronically Signed Date/Time: 02/18/212256 Technologist: Twin Date/Time: 02/18/212255 Transcribed Date/Time:XR Ankle Lt 3 View [facility] LORETTA MORTON : 1985 [facility] Pt Name: LORETTA MORTON [address] Phys:Alexandro Owens MD *r [place] [address] : 1985 Age: 35 SEX:F [phone] Exam Date: 02/18/21 Status: REG ER Acct: [id number] Loc: ERS Pt Unit #: [id number] Report #: [id number] CC: Alexandro Owens MD *r IMAGING SERVICES REPORT Order # Category/Exam [id number] RAD/XR Ankle Lt 3 View STANDARD ([id number]): . Results XR Ankle Lt 3 View STANDARD History: Injury Comparison: Radiograph 2016 Findings: No acute displaced fracture or malalignment. Bone island distal tibial metaphysis. No lateral talar shift. Fifth metatarsal tuberosity is intact. Impression: No acute osseous abnormality. Reported By: LARA HADLEY Electronically Signed Date/Time: 02/18/212256 Technologist: DEAN Dictated Date/Time: 02/18/212256 Transcribed Date/Time:XR Tib Fib Rt Leg [facility] Ivonneme: LORETTA MORTON : 1985 Sex: [facility] Pt Name: LORETTA MORTON [address] Phys:Alexandro Owens MD *r [place], [place] [address] : 1985 Age: 35 SEX:F [phone] Exam Date: 02/18/21 Status: REG ER Acct: [id number] Loc: ERS Pt Unit #: [id number] Report #: [id number] CC: Alexandro Owens MD *r IMAGING SERVICES REPORT Order # Category/Exam [id number] RAD/XR Tib Fib Rt Leg 2 View ([id number]): . Results XR Tib Fib Rt Leg 2 View History: Injury Comparison: None. Findings: Noacute displaced fracture or malalignment. Soft tissues are normal. Impression: No acute osseous abnormality. Reported By: LARA HADLEY Electronically Signed Date/Time: 02/18/212257 Technologist: DEAN Dictated Date/Time: 02/18/212257 Transcribed Date/Time:US Pelvic Transvag [facility] BRYANName: LORETTA MORTON : 1985 Sex: F Pt Name: LORETTA MORTON [address] [facility]. Phys: Jessica Livingston, DAMION [place] [address] : 1985 Age: 34 SEX:F [phone] Exam Date: 07/21/20 Status: REG CLI Acct: [id number] Loc: BICULT Pt Unit #: [id number] Report #: [id number] CC: Jessica Livingston FNP ULTRASOUND REPORT Order # Category/Exam [id number] ULT/US Pelvic Transvag W Doppler ([id number]): . Results PELVIC ULTRASOUND INCLUDING TRANSABDOMINAL AND [...] abnormal fluid collection. POS: [facility] Reported By: Luz Maria Yusuf MD Electronically Signed Date/Time: 07/21/20 1615 Technologist: ALON Dictated Date/Time: 07/21 1117 Transcribed Date/Time: 07/21/20 1354XR Foot Lt [facility] Pt Name: LORETTA MORTON [address] [place] [address] Phys: [place] [address] : 1985 Age: 34 SEX:F [phone] Exam Date: 11/30/19 Status: REG REF Acct: [id number] Loc: SCSRAD Pt Unit #: [id number] Report #: [id number] CC: Sally Carey HYDRAULIC ENGINEER IMAGING SERVICES REPORT Order # Category/Exam [id number] RAD/XR Foot Lt 3 View STANDARD ([id number]): . Results Exam: XR Foot Lt 3 View STANDARD HISTORY: Left foot pain. Patient unable to bear weight. COMPARISON: None FINDINGS: No acute fracture, dislocation, or other acute osseous abnormality is identified. IMPRESSION: No acute osseous abnormality is identified. Reported By: Ajith jimenes Signed: 11/30/2019 12:06 PM Reported By: Ajith Guillermo MD Electronically Signed Date/Time: 031205 Technologist: EM Dictated Date/Time: 11/30/191205 Transcribed Date/Time:
[2024-10-06 21:25] LABS: Absolute Basophils 0.1 K/uL (0-0.5); Absolute Eosinophils 0.1 K/uL (0-0.5); Absolute Lymphocytes (CBC) 2.4 K/uL (0.7-4.9); Absolute Monocytes 0.5 K/uL (0.1-1.3); Absolute Neutrophil 6.6 K/uL (1.8-8.0); Basophils % 1.1 % (0-1.3); Eosinophils % 0.9 % (0-4.4); Hematocrit 33.9 % (36.0-45.0); Hemoglobin 11.5 g/dL (12.0-15.0); Lymphocytes % 24.6 % (15.3-44.8); MCH 27.5 pg (27.0-35.0); MCHC 34.1 g/dL (32.0-36.0); MCV 80.7 fL (80-100); MPV 7.6 fL (7.6-11.3); Monocytes % 4.9 % (3.3-12.3); Neutrophils % 68.5 % (41.7-73.7); Nucleated Red Blood Cells % 0.1 % (0-0); Platelets 413 thou/uL (152-406); RBC Red Blood Cell Count 4.19 M/uL (3.86-4.86); Red Cell Distribution Width 14.1 % (12.1-15.2)
[2024-10-06 21:41] LABS: Albumin 3.5 g/dL (3.4-5.0); Albumin/Globulin Ratio 1.1 (1.1-1.8); Alkaline Phosphatase 54 U/L (45-117); Anion Gap 7.9 mEq/L (5.0-15.0); BUN Blood Urea Nitrogen 13 mg/dL (7-18); Bicarbonate 28 mEq/L (21-32); Bilirubin Direct 0.3 mg/dL (0-0.2); Bilirubin Indirect, Calculated 0.9 mg/dL (0.2-0.8); Bilirubin Total 1.2 mg/dL (0.2-1.0); Globulin 3.2 g/dL (2.3-3.5); Glomerular Filtration Rate 97 ml/min (=/>90); Glucose Level 98 mg/dL (74-106); Potassium 3.9 mEq/L (3.5-5.1); Protein, Total 6.7 g/dL (6.4-8.2); Sodium Level 140 mEq/L (136-145)
[2024-10-06 21:42] LABS: ALT/SGPT < 14 U/L (13-56); AST/SGOT < 10 U/L (15-37); Troponin High Sensitivity < 3.0 pg/mL (<58.9)
[2024-10-06 21:42] LABS: Barbiturates NEGATIVE (NEGATIVE); Benzodiazepines NEGATIVE (NEGATIVE); Cocaine NEGATIVE (NEGATIVE); METHAMPHETAM NEGATIVE (NEGATIVE); Methadone NEGATIVE (NEGATIVE); Opiates NEGATIVE (NEGATIVE); Phencyclidine NEGATIVE (NEGATIVE); THC Cannibis NEGATIVE (NEGATIVE)
[2024-10-06] MEDS ORDERED: LIDOCAINE 1% 20 ML MDV ONE (21:44)
[2024-10-06] MEDS ORDERED: METOCLOPRAMIDE 10 MG/2mL INJ ONE (21:44)
[2024-10-06] MEDS ORDERED: KETOROLAC 30 MG/ML INJ ONE (21:44)
[2024-10-06] MEDS ORDERED: DIPHENHYDRAMINE 50 MG/ML VIAL ONE (21:44)
[2024-10-06] MEDS ORDERED: NA CHLORIDE 0.9% 1,000 ML ONE (21:44)
--- NOTE | 2024-10-06 21:53 | RAD REPORT ---
EXAM: Chest Single View HISTORY: syncope COMPARISON: None. FINDINGS: LUNGS/PLEURA: The lungs are clear. No pleural effusions or pneumothorax. No pulmonary edema. MEDIASTINUM: The mediastinal silhouette is within normal limits. CARDIAC: The cardiac silhouette is within normal limits. UPPER ABDOMEN: No significant abnormality. BONES: No acute abnormality. LINES/TUBES/OTHER: N/A IMPRESSION: No evidence of acute cardiopulmonary disease.
--- NOTE | 2024-10-07 00:22 | ER ---
Nurse's Notes [facility] Name: Janine Crook Age: 39 yrs Sex: Female : 1985 Arrival Date: 10/06/2024 Time: 20:29 Bed 16 Private MD: Diagnosis: Laceration without foreign body of scalp;Acute head injury, Syncope and collapse, Acute posterior scalp laceration Presentation: 10/06 20:57 Chief complaint: Patient states: Had syncopal episode and fell back and hit head on the cm10 stove. Pt has laceration to back of head. pt complaining of pain to neck and back. Coronavirus screen: Client denies travel out of the [place] in the last 14 days. Ebola Screen: Patient denies travel to an Ebola-affected area in the 21 days before illness onset. Initial Sepsis Screen: Does the patient meet any 2 criteria? No. Patient's initial sepsis screen is negative. Does the patient have a suspected source of infection? No. Patient's initial sepsis screen is negative. Risk Assessment: Do you want to hurt yourself or someone else? Patient reports no desire to harm self or others. Onset of symptoms. 20:57 Method Of Arrival: Wheelchair cm10 20:57 Acuity: DANGELO 3 cm10 Triage Assessment: 20:59 General: Appears in no apparent distress. comfortable, Behavior is calm, cooperative. cm10 Pain: Complains of pain in head, back of neck and posterior chest Pain currently is 10 out of 10 on a pain scale. Neuro: No deficits noted. Level of Consciousness is awake, alert, obeys commands, Oriented to person, place, time, situation, Appropriate for age Reports headache a syncopal episode. Respiratory: No deficits noted. Airway is patent Respiratory effort is even, unlabored, Respiratory pattern is regular, symmetrical. Historical: - Allergies: 20:58 Amoxicillin; cm10 20:58 PENICILLINS; cm10 - PMHx: 20:58 None; cm10 - PSHx: 20:58 section; fallopian tubes removed; Tonsillectomy; cm10 - Immunization history:: Adult Immunizations up to date. - Infectious Disease History:: Denies. - Social history:: Smoking status: unknown. Screenin:50 [facility] ED Fall Risk Assessment (Adult) History of falling in the last 3 months, ay including since admission Yes- physiologic fall (2 pts) Confusion or Disorientation No (0 pts) Intoxicated or Sedated No (0 pts) Impaired Gait No (0 pts) Mobility Assist Device Used No (0 pt) Altered Elimination No (0 pt) Score/Fall Risk Level 0 - 2 = Low Risk Oriented to surroundings, Maintained a safe environment, Educated pt \T\ family on fall prevention, incl call for assistance when getting out of bed, Assessed \T\ reinforced patient's understanding of fall precautions. Abuse screen: Denies threats or abuse. Nutritional screening: No deficits noted. Tuberculosis screening: No symptoms or risk factors identified. Assessment: 20:50 General: Appears in no apparent distress. uncomfortable, Behavior is calm, cooperative. ay Pain: Complains of pain in posterior head, posterior neck Pain currently is 10 out of 10 on a pain scale. Neuro: Level of Consciousness is awake, alert, obeys commands, Oriented to person, place, time, Speech is normal, Reports headache occipital area. Cardiovascular: Denies chest pain, shortness of breath, Capillary refill < 3 seconds. Respiratory: Airway is patent Respiratory effort is even, unlabored, Respiratory pattern is regular, symmetrical, Denies shortness of breath. GI: No signs and/or symptoms were reported involving the gastrointestinal system. : No signs and/or symptoms were reported regarding the genitourinary system. EENT: No signs and/or symptoms were reported regarding the EENT system. Derm: Skin laceration on back of head. Injury Description: Head injury sustained to posterior Laceration. Vital Signs: 20:57 BP 106 / 70; Pulse 72; Resp 15; Temp 98.6; Pulse Ox 100% ; Weight 58.51 kg; Height 5 cm10 ft. 4 in. ; Pain 10/10; 21:15 BP 106 / 70; Pulse 60; Pulse Ox 99% on R/A; ay 21:15 BP 109 / 72; Pulse 65; Resp 19; Pulse Ox 97% on R/A; ay 23:45 BP 101 / 77; Pulse 72; Resp 18; Pulse Ox 99% ; ay 10/07 00:00 BP 106 / 68; Pulse 69; Resp 16; Pulse Ox 100% on R/A; ay 10/06 20:57 Body Mass Index 22.14 (58.51 kg, 162.56 cm) cm10 10/06 20:57 Pain Scale: Adult cm10 Antonio Coma Score: 10/06 20:57 Eye Response: spontaneous(4). Motor Response: obeys commands(6). Verbal Response: cm10 oriented(5). Total: 15. ED Course: 20:35 Patient arrived in ED. gm2 20:40 Dominguez Tao MD is Attending Physician. sp4 20:50 Assist provider with laceration repair on back of head. ay 20:58 Triage completed. cm10 20:59 Arm band placed on right wrist. Patient placed in an exam room, on a stretcher. cm10 21:16 Basic Metabolic Panel Sent. af3 21:16 CBC with Diff Sent. af3 21:16 LFT's Sent. af3 21:16 Magnesium Sent. af3 21:16 Inserted saline lock: 20 gauge in left antecubital area, using aseptic technique. Blood af3 collected. Flushed with 10 mL NS. 21:16 Initial lab(s) drawn, by me. af3 21:27 EKG done, by extractions technologist. af3 21:39 Debora Santiago, RN is Primary Nurse. ay 21:49 XRAY Chest (1 view) In Process Unspecified. EDMS 23:40 CT Head C Spine In Process Unspecified. EDMS 10/07 00:51 IV discontinued, intact, bleeding controlled, No redness/swelling at site. Pressure ay dressing applied. 00:52 Patient has correct armband on for positive identification. Bed in low position. Call ay light in reach. Side rails up X2. Administered Medications: 10/06 21:57 Drug: Ketorolac IVP 30 mg IVP once Route: IVP; Site: left antecubital; ay 10/07 00:42 Follow up: Response: No adverse reaction ay 10/06 21:57 Drug: metoCLOPramide IVP 10 mg IVP once; over 1 to 2 minutes Route: IVP; Site: left ay antecubital; 10/07 00:42 Follow up: Response: No adverse reaction ay 10/06 21:57 Drug: diphenhydrAMINE IVP 25 mg IVP once Route: IVP; Site: left antecubital; ay 10/07 00:19 Follow up: Response: No adverse reaction ay 10/06 21:57 Drug: NS 0.9% IV 1000 ml IV at 1000 ml once; to be given as a bolus over 60 minutes ay Route: IV; Rate: 1000 ml; Site: left antecubital; 10/07 00:00 Follow up: Response: No adverse reaction; IV Status: Completed infusion; IV Intake: ay 1000ml 10/06 21:58 Drug: Lidocaine Infiltration (1 %) 20 ml 20 ml Infiltration once; to bedside Volume: 20 ay ml; Route: Infiltration; Intake: 10/07 00:00 IV: 1000ml; Total: 1000ml. ay Outcome: 00:22 Discharge ordered by MD. ennis 00:51 Discharged to home ambulatory, ay 00:51 Condition: stable 00:51 Discharge instructions given to patient, Instructed on discharge instructions, follow up and referral plans. Demonstrated understanding of instructions, follow-up care, medications, Prescriptions given X 2, 00:53 Patient left the ED. ay Signatures: Dispatcher [employer] EDMS Dominguez Tao MD MD sp4 Toma Sanchez, RN RN Annalee Uriostegui 2 Patricia Agudelo 3 Debora Santiago, RN RN ay
--- NOTE | 2024-10-07 00:22 | EDPHYS ---
Physician Documentation [facility] Name: Janine Crook Age: 39 yrs Sex: Female : 1985 Arrival Date: 10/06/2024 Time: 20:29 Bed 16 Private MD: ED Physician Dominguez Tao HPI: 10/06 20:40 This 39 yrs old Female presents to ER via Unassigned with complaints of Head sp4 Injury-Adult, Syncope, Probable Seizure, Laceration To Head, Headache. Historical: - Allergies: 20:58 Amoxicillin; cm10 20:58 PENICILLINS; cm10 - PMHx: 20:58 None; cm10 - PSHx: 20:58 section; fallopian tubes removed; Tonsillectomy; cm10 - Immunization history:: Adult Immunizations up to date. - Infectious Disease History:: Denies. - Social history:: Smoking status: unknown. Vital Signs: 20:57 BP 106 / 70; Pulse 72; Resp 15; Temp 98.6; Pulse Ox 100% ; Weight 58.51 kg; Height 5 cm10 ft. 4 in. ; Pain 10/10; 21:15 BP 106 / 70; Pulse 60; Pulse Ox 99% on R/A; ay 21:15 BP 109 / 72; Pulse 65; Resp 19; Pulse Ox 97% on R/A; ay 23:45 BP 101 / 77; Pulse 72; Resp 18; Pulse Ox 99% ; ay 10/07 00:00 BP 106 / 68; Pulse 69; Resp 16; Pulse Ox 100% on R/A; ay 10/06 20:57 Body Mass Index 22.14 (58.51 kg, 162.56 cm) cm10 10/06 20:57 Pain Scale: Adult cm10 Antonio Coma Score: 10/06 20:57 Eye Response: spontaneous(4). Motor Response: obeys commands(6). Verbal Response: cm10 oriented(5). Total: 15. MDM: 21:43 Medical Screening Exam initiated sp4 10/07 00:11 ED course: EXAM: CT Head and Cervical Spine Without Intravenous Contrast CLINICAL sp4 HISTORY: head injury TECHNIQUE: Axial computed tomography images of the head/brain and cervical spine without intravenous contrast. Sagittal and coronal reformatted images were created and reviewed. This CT exam was performed using one or more of the following dose reduction techniques: automated exposure control, adjustment of the mA and/or kV according to patient size, and/or use of iterative reconstruction technique. COMPARISON: No relevant prior studies available. FINDINGS: Brain: Unremarkable. No hemorrhage. No significant white matter disease. No edema. Ventricles: Unremarkable. No ventriculomegaly. Skull: No acute fracture. Sinuses: Unremarkable as visualized. No acute sinusitis. Mastoid air cells: Unremarkable as visualized. No mastoid effusion. Vertebrae: No acute fracture or subluxation. Discs/spinal canal/neural foramina: Mild disc degeneration with central disc bulge and small uncovertebral osteophytes at C5-C6. Mild multilevel facet arthropathy. No canal stenosis. Soft tissues: Mild to moderate left occipital soft tissue swelling with adjacent laceration. IMPRESSION: 1. No acute intracranial or extra-axial abnormality. 2. No acute cervical spine injury. 3. Other findings as above. . 10/06 20:52 Order name: Basic Metabolic Panel; Complete Time: 23:05 [facility] 10/06 20:52 Order name: CBC with Diff; Complete Time: 23:05 [facility] 10/06 20:52 Order name: LFT's; Complete Time: 23:05 10/06 20:52 Order name: Magnesium; Complete Time: 23:05 10/06 20:52 Order name: Troponin HS; Complete Time: 23:05 10/06 20:52 Order name: Test, Serum; Complete Time: 23:05 10/06 20:52 Order name: Alcohol Level; Complete Time: 23:05 10/06 20:54 Order name: Urine Drug Screen; Complete Time: 23: 10/06 20:52 Order name: XRAY Chest (1 view); Complete Time: 23:05 10/06 23:06 Order name: CT Head C Spine 10/06 20:52 Order name: Cardiac monitoring; Complete Time: 21:27 [facility] 10/06 20:52 Order name: EKG - Nurse/Tech; Complete Time: 21:27 10/06 20:52 Order name: IV Saline Lock; Complete Time: 21:16 [facility] 10/06 20:52 Order name: Labs collected and sent; Complete Time: 21:16 [facility] 10/06 20:53 Order name: Dressing - Wound; Complete Time: 00:56 sp4 10/06 20:53 Order name: Gloves, Sterile; Complete Time: 00:56 sp4 10/06 20:53 Order name: Setup Suture Tray; Complete Time: 00:56 sp4 Administered Medications: 10/06 21:57 Drug: Ketorolac IVP 30 mg IVP once Route: IVP; Site: left antecubital; ay 10/07 00:42 Follow up: Response: No adverse reaction ay 10/06 21:57 Drug: metoCLOPramide IVP 10 mg IVP once; over 1 to 2 minutes Route: IVP; Site: left ay antecubital; 10/07 00:42 Follow up: Response: No adverse reaction ay 10/06 21:57 Drug: diphenhydrAMINE IVP 25 mg IVP once Route: IVP; Site: left antecubital; ay 10/07 00:19 Follow up: Response: No adverse reaction ay 10/06 21:57 Drug: NS 0.9% IV 1000 ml IV at 1000 ml once; to be given as a bolus over 60 minutes ay Route: IV; Rate: 1000 ml; Site: left antecubital; 10/07 00:00 Follow up: Response: No adverse reaction; IV Status: Completed infusion; IV Intake: ay 1000ml 10/06 21:58 Drug: Lidocaine Infiltration (1 %) 20 ml 20 ml Infiltration once; to bedside Volume: 20 ay ml; Route: Infiltration; Disposition Summary: 10/07/24 00:22 Discharge Ordered Notes: Suture removal after 14 days advised Location: Home sp4 Problem: new sp4 Symptoms: have improved sp4 Condition: Stable sp4 Diagnosis - Laceration without foreign body of scalp sp4 - Acute head injury, Syncope and collapse, Acute posterior scalp laceration sp4 Followup: sp4 - With: Private Physician - When: 10 - 14 days - Reason: Recheck today's complaints Discharge Instructions: - Discharge Summary Sheet sp4 - Laceration Care, Adult, [id number] sp4 Forms: - Patient Portal Instructions sp4 - Work release form [facility] Prescriptions: - Fioricet 50-300-40 mg Oral capsule - take 1 capsule ORAL route every 8 hours PRN headache; 30 capsule; Refills: 0, sp4 Product Selection Permitted - promethazine 25 mg Oral tablet - take 1 tablet ORAL route every 6 hours As needed PRN nausea; 30 tablet; sp4 Refills: 0, Product Selection Permitted Signatures: Dispatcher [employer] EDMS Dominguez Tao MD MD sp4 Toma Sanchez RN RN cm10 Debora Santiago RN RN ay Corrections: (The following items were deleted from the chart) 20:52 20:52 Chest Single View+RAD.RAD.BRZ ordered. EDMS EDMS
--- NOTE | 2024-10-07 00:30 | RAD REPORT ---
EXAM: CT Head and Cervical Spine Without Intravenous Contrast CLINICAL HISTORY: head injury TECHNIQUE: Axial computed tomography images of the head/brain and cervical spine without intravenous contrast. Sagittal and coronal reformatted images were created and reviewed. This CT exam was performed using one or more of the following dose reduction techniques: automated exposure control, adjustmen t of the mA and/or kV according to patient size, and/or use of iterative reconstruction technique. COMPARISON: No relevant prior studies available. FINDINGS: Brain: Unremarkable. No hemorrhage. No significant white matter disease. No edema. Ventricles: Unremarkable. No ventriculomegaly. Skull: No acute fracture. Sinuses: Unremarkable as visualized. No acute sinusitis. Mastoid air cells: Unremarkable as visualized. No mastoid effusion. Vertebrae: No acute fracture or subluxation. Discs/spinal canal/neural foramina: Mild disc degeneration with central disc bulge and small uncove rtebral osteophytes at C5-C6. Mild multilevel facet arthropathy. No canal stenosis. Soft tissues: Mild to moderate left occipital soft tissue swelling with adjacent laceration. IMPRESSION: 1. No acute intracranial or extra-axial abnormality. 2. No acute cervical spine injury. 3. Other findings as above. Electronically signed by: Trupti Chew MD 10/07/2024 12:04 AM [facility] Due to temporary technical issues with the PACS/Hojoki reporting system, reports are being jessica d by the in-house radiologist without review as a courtesy to ensure prompt reporting the interpreting radiologist is fully responsible for the content of the report. Transcribed Date/Time: 10/07/2024 12:30 AM
[2024-10-07 01:03] VITALS: TEMP 98.6
[2024-10-07 01:19] VITALS: BP 101/77; O2SAT 99
--- NOTE | 2024-10-08 12:16 | EKG ---
Test Date: 2024-10-06 Test Time: 21:21:30 Drive In Waiter/Waitress: AF MEASUREMENT RESULTS: Intervals: Rate: 65 SC: 166 QRSD: 74 QT: 414 QTc: 430 Guston: P: -17 SC: 166 QRS: 83 T: 75 INTERPRETIVE STATEMENTS: Sinus rhythm with marked sinus arrhythmia Otherwise normal ECG No previous ECG available for comparison Electronically Signed On 10-08-24 12:13:31 SOAP MIXER by Suhail Godwin
== END 2024-10-07 00:53 | disposition home or self-care (01) ==
LOC: ER 20:29
DX: S01.01XA Laceration without foreign body of scalp, initial encounter (principal); R55 Syncope and collapse
CPT/HCPCS: 36415; 70450; 71045; 72125; 80048; 80076; 80307; 82077; 83735; 84484; 84703; 85025; 93005; J1200; J2003; J2765; J7030

== ENCOUNTER 2024-10-19 17:56 | Emergency (ER) | payer SELFPAY ==
--- OUTSIDE RECORDS SUMMARY | 2024-10-19 17:58 | XMS REPORT | Continuity of Care Document ---
Author Name Unknown Address [address] [facility] [address] [place] [address] [facility] thconnect Address [address] [facility] [place] [address] Care Team Providers Care Career Resource Specialist Name Role Phone Evelyn Medina Attending Clinician [...] Date Source Self Pay P NONE Medicaid [id number] [facility] Problems Condition Name Condition Details Condition Category Status Onset Date Resolution Date Last Treatment Date Treating Clinician Comments Source Smoker Smoker Problem Active [facility] [id number] History of hypothyroi dism Problem Active [facility] [id number] Acquired hypothyroi dism Problem Active [facility] [id number] DANA (generaliz ed anxiety disorder) Problem Active [facility] [id number] Exposure to strep throat Problem Active [facility] Umbilical hernia Umbilical hernia Problem Active [facility] [id number] History of umbilical hernia Problem Active [facility] [id number] Painful menstrual periods Problem Active [facility] [id number] Mood disorder Problem Active [facility] Allergies, Adverse Reactions, Alerts Allergy Name Allergy Type Status Severity Reaction(s) Onset Date Inactive Date Treating Clinician Comments Source Penicill ins Allergy to substanc e Active 11-20 13:14: 03 [facility] amoxicil mignon Allergy to substanc e Active 11-20 13:14: 03 [facility] Penicill ins Allergy to substanc e Active 11-20 13:14: 03 [facility] Penicill ins DA Active U throat swelling 11-20 00:00: 00 [facility] [place] amoxicil mignon DA Active U throat swelling 11-20 00:00: 00 [facility] penicill in V penicill in V Active Unknown [facility] penicill in G penicill in G Active Unknown [facility] amoxicil mignon amoxicil mignon Active Unknown [facility] Social History Social Habit Start Date Stop Date Quantity Comments Source History of Tobacco Use [facility] Sex Assigned At 1985 00:00:00 1985 00:00:[address] [facility] Smoking Status Start Date Stop Date Source Unknown if ever smoked . [facility] Former Smoker 2021-02-22 00:00:00 2021-02-22 00:00:00 [facility] Medications Ordered Medication Name Filled Medication Name Start Date Stop Date Current Medication? Ordering Clinician Indication Dosage Frequency Signature (SIG) Comments Components Source Ondansetron 4 MG Ondansetron 4 MG 02-22 00:00: 00 No 1{table t_on_ e_tongu e_and_a llow_to _dissol ve} QID Ondansetro n [address] [facility] Cefdinir Cefdinir 00:00: 00 Yes Sally Lokey [address] [facility] Zithromax Z-Christopher Zithromax Z-Christopher 00:00: 00 Yes Sally Lokey 2 tablets on the first day, then 1 tablet daily for [address] [facility] Ativan Ativan 2017-09 00:00: 00 Yes Sally Lokey 1 tablet as needed [facility] Levothyroxi ne Sodium 02-13 13:58: 18 No 50MCG Every Morning [facility] Levothyroxi ne Sodium 02-12 23:00: 00 No 50MCG Every Morning [facility] Rox575/Iron Fum/Folic/D ocusate ( 19) 1 TABLET Tablet 02-12 23:00: 00 No 1TABLET Daily [facility] Levothyroxi ne Sodium Levothyroxi ne Sodium 01-01 00:00: 00 Yes Sally Lokey 1 tablet on an empty stomach in the morning [facility] Yes Sally Lokey [address] [facility] Levothyroxi ne Sodium Levothyroxi ne Sodium No Levothyrox ine Sodium [facility] Vital Signs Vital Name Observation Time Observation Value Comments S ource weight 2021-02-22 11:45:00 179.0 [lb_av] [facility] height 2021-02-22 11:45:00 64 [in_i] [facility] bmi 2021-02-22 11:45:00 30.72 kg/m2 [facility] heart rate 2021-02-22 11:45:00 75 /min [facility] temperature 2021-02-22 11:45:00 97.1 [degF] [facility] oximetry 2021-02-22 11:45:00 98 % [facility] respiratory rate 2021-02-22 11:45:00 18 /min [facility] blood pressure systolic 2021-02-22 11:45:00 131 mm[Hg] [facility] blood pressure diastolic 2021-02-22 11:45:00 80 mm[Hg] [facility] WEIGHT 2018-02-13 14:57:00 77.417968 kg HEIGHT 2018-02-13 14:57:00 162.56 cm Procedures Procedure Date / Time Performed Performing Clinicia n Source US Venous Doppler Lt Unilat 2021-09-08 14:50:00 [facility] Encounters Start Date/Time End Date/Time Encounter Type Admission Type Attending Clinicians Care Facility Care Department Encounter ID Source 2023-09-19 16:50:00 Outpatient Gema Medinay [facility] [id number] [facility] 2023-05-25 14:52:01 Outpatient Koko Morales [facility] [id number] [facility] 2023-03-23 10:19:00 Outpatient Carol Evelyn [facility] HP[facility] [id number] [facility] 2022-06-22 16:13:03 Outpatient lc.intransi tionlmcobgy n [facility] [id number] [facility] 2021-09-29 13:40:58 Outpatient STLS STLS [id number] [facility] 2021-09-29 13:17:00 Outpatient ST[facility] [id number] [facility] 2021-09-29 11:16:[address] [facility] [id number] [facility] 2023-09-11 15:39:00 2023-09-11 17:25:00 Emergency ER Derek Loza [facility] [id number] [facility] 2023-09-11 15:39:00 2023-09-11 17:25:[address] [facility] [id number] [address] [place] [address] 2021-09-08 12:26:00 2021-09-08 16:15:00 Emergency ER Jazmín Sabillon [facility] [id number] [facility] 2021-09-08 12:26:00 2021-09-08 16:15:00 Outpatient [facility] [id number] [facility]) 2021-09-08 12:26:00 2021-09-08 16:15:00 Departed Emergency [id number] [facility] [id number] [facility]) 2021-02-22 00:00:00 2021-02-22 00:00:00 Office Visit, Est Pt., Level [address] [facility] [id number] [facility] 2021-02-18 21:04:00 2021-02-19 00:25:00 Emergency ER Shelly Savage [facility] [id number] [facility] 2021-01-12 10:56:00 2021-01-12 11:55:00 Emergency ER Serafin Charles [facility] [id number] [facility] 2020-10-01 11:05:00 2020-10-01 13:41:00 Emergency ER Lara Hennessy [facility] [id number] [facility] 2020-07-21 10:05:00 2020-07-21 10:06:00 Outpatient R Jessica Livingston [facility] [id number] [facility] 2019-11-30 11:39:00 2019-11-30 11:39:00 Outpatient R CherrySally [facility] [id number] [facility] 2019-11-30 11:15:00 2019-11-30 11:15:00 Outpatient [facility] [id number] [facility] 2018-02-23 06:08:00 2018-02-23 13:32:00 Outpatient Serafin Varela [facility] [id number] [facility] 2018-02-13 14:37:00 2018-02-13 14:38:00 Outpatient Serafin Varela [facility] [id number] [facility] 2018-01-10 09:13:00 2018-01-10 09:14:00 Outpatient Brandy Smith [facility] [id number] [facility] Results Test Description Test Time Test Comments Results Result Co mments Source Chemistry - [id number] 15:36:00* Test Item Value Reference Range Interpretation Comme nts Chemistry - Specials (test code = BHCGST) Negative NEGATIVE Method of s ensitivity- Indeterminant: results should be repeated after 48-72 hrs Positive: results may be detected as early as 1 day after the first missed menses. [id number] 15:34:00* Test Item Value Reference Range Interpretation [...] 0.0-0.2 N US Venous Doppler Lt Unilat [facility] LORETTA CROOK : 1985 [facility] Pt Name: LORETTA CROOK [address] Phys:Jazmín Sabillon NP [place], [place] [address] : 1985 Age: 36 SEX:F [phone] Exam Date: 09/08/21 Status: REG ER Acct: [id number] Loc: ERS Pt Unit #: [id number] Report #: [id number] CC: Jazmín Sabillon NP ULTRASOUND REPORT Order # Category/Exam [id number] ULT/US Venous Doppler Lt [facility] ([id number]): . Results EXAM: Left lower extremity venous [...] XR Tib Fib Lt Leg 2 View [facility] L[facility]TA CROOK : 1985 [facility] Pt Name: LORETTA CROOK [address] Phys:Alexandro Owens MD *r [place], [place] [address] : 1985 Age: 35 SEX:F [phone] Exam Date: 02/18/21 Status: REG ER Acct: [id number] Loc: [facility] Pt Unit #: [id number] Report #: [id number] CC: Alexandro Owens MD *r IMAGING SERVICES REPORT Order # Category/Exam [id number] RAD/XR Tib Fib Lt Leg 2 View ([id number]): . Results XR Tib Fib Lt Leg 2 View History: Injury Comparison: None. Findings: Bone island distal tibial metaphysis. No acute displaced fracture or malalignment. Impression: No acute osseous abnormality. Reported By: LARA HADLEY Electronically Signed Date/Time: 02/18/212256 Technologist: Twin Date/Time: 02/18/212255 Transcribed Date/Time:XR Ankle Lt 3 View [facility] L[facility]ETTA CROOK : 1985 [facility] Pt Name: LORETTA CROKO [address] Phys:Alexandro Owens MD *r [place] [address] : 1985 Age: 35 SEX:F [phone] Exam Date: 02/18/21 Status: REG ER Acct: [id number] Loc: ERS Pt Unit #: [id number] Report #: [id number] CC: Alexandro Owens MD *r IMAGING SERVICES REPORT Order # Category/Exam [id number] RAD/XR Ankle Lt 3 View STANDARD ([id number]): . Results XR Ankle Lt 3 View STANDARD History: Injury Comparison: Radiograph 2016 Findings: No acute displaced fracture or malalignment. Bone island distal tibial metaphysis. No lateral talar shift. Fifth metatarsal tuberosity is intact. Impression: No acute osseous abnormality. Reported By: LARA HADLEY Electronically Signed Date/Time: 02/18/212256 Technologist: DEAN Dictated Date/Time: 02/18/212256 Transcribed Date/Time:XR Tib Fib Rt Leg 2 [facility] [place]: LOR[place]TA CR[place] : 1985 Sex: [facility] Pt Name: LORETTA CROOK [address] Phys:Alexandro Owens MD *r [place] [address] : 1985 Age: 35 SEX:F [phone] Exam Date: 02/18/21 Status: REG ER Acct: [id number] Loc: ERS Pt Unit #: [id number] Report #: [id number] CC: Alexandro Owens MD *r IMAGING SERVICES REPORT Order # Category/Exam [id number] RAD/XR Tib Fib Rt Leg 2 View ([id number]): . Results XR Tib Fib Rt Leg 2 View History: Injury Comparison: None. Findings: Noacute displaced fracture or malalignment. Soft tissues are normal. Impression: No acute osseous abnormality. Reported By: LARA HADLEY Electronically Signed Date/Time: 02/18/212257 Technologist: DEAN Dictated Date/Time: 02/18/212257 Transcribed Date/Time:US Pelvic Transvag [facility] CR[facility] : 1985 Sex: F [facility]: [facility] [address] [facility] Phys: Jessica Livingston, [place] [address] :1985 Age: 34 SEX:F [phone] Exam Date: 07/21/20 Status: REG CLI Acct: [id number] Loc: BICULT Pt Unit #: [id number] Report #: [id number] CC: Jessica Livingston FNP ULTRASOUND REPORT Order # Category/Exam [id number] ULT/US Pelvic Transvag W Doppler ([id number]): . Results PELVIC ULTRASOUND INCLUDING TRANSABDOMINAL AND [...] 07/21/20 1354XR Foot Lt [facility] Pt Name: LORETTA CROOK [address] [place] [address] Phys: [place] [address] : 1985 Age: 34 SEX:F [phone] Exam Date: 11/30/19 Status: REG REF Acct: [id number] Loc: [facility] Pt Unit #: [id number] Report #: [id number] CC: Sally Carey NP IMAGING SERVICES REPORT Order # Category/Exam [id number] RAD/XR Foot Lt 3 View STANDARD ([id number]): . R esults Exam: XR Foot Lt [...] Notes Date/Time Note Provider Source 2018-02-23 11:25:00 [facility] Name: LORETTA CROOK Intela : 1985, Age: 32, Sex: [place] [address] Unit #: [id number], Status: [facility] [phone] Location[place] [facility] [place] Dict Dr.: Serafin Garber MD Admission Date: Report #: [id number] Discharge Date: 02/23/18 CC: Serafin Garber MD, [...] with 0 V-Loc suture. Once this was accomplished , the pneumoperitoneum was reduced to 11 mmHg [...] Date/Time: 02/23/18 1103 Transcribed Date/Time: 02/23/18 1124 Plug Drill Operator: MANDI. Serafin Garber [facility] 2018-02-19 09:27:00 [facility] Name: LORETTA CROOK [employer] : 1985, Age: 32, Sex: [place] [address] Unit #: [id number], Status: [facility] [phone] Location: [facility] [place] Dict Dr.: Serafin Garber MD Admission Date: Report #: [id number] Discharge Date: CC: Serafin Garber MD, Patricia [...] be about 130 pounds. 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 She was seeing another surgeon regarding umbilical hernia which she was surprised to find that she had. She has been told she has diastasis recti. 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
--- NOTE | 2024-10-19 18:13 | EDPHYS ---
Physician Documentation [facility] Name: Janine Crook Age: 39 yrs Sex: Female : 1985 Arrival Date: 10/19/2024 Time: 17:56 Bed 16 Private MD: ED Physician Barry Lopez HPI: 10/19 18:13 This 39 yrs old Female presents to ER via Ambulatory with complaints of ec2 Suture Removal. 18:13 Patient arrives today for evaluation of sutures. Patient reports that she had sutures ec2 placed approximately 2 weeks ago. Denies any issues.. 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 - Infectious Disease History:: Denies. - Social history:: Smoking status: Reported history of juuling and/or vaping. ROS: 18:14 Constitutional: as per hpi ec2 Exam: 18:14 Constitutional: GEN: NAD Head: atraumatic Eyes: EOMI Ears: External ears are ec2 normal. CV: regular rate LUNGS: no respiratory distress ABD: non-distended SKIN: Well-healed suture sites to the occiput, x 7. MSK: no evidence of trauma Vital Signs: 18:05 BP 127 / 86; Pulse 81; Resp 16 S; Temp 97.8(TE); Pulse Ox 100% on R/A; Weight 58.51 kg aa5 (R); Height 5 ft. 4 in. (R); 18:18 BP 124 / 87; Pulse 79; Resp 16; Temp 98.1; Pulse Ox 100% ; me1 18:05 Body Mass Index 22.14 (58.51 kg, 162.56 cm) aa5 Procedures: 18:14 Suture/Staple removal: Removed 7 sutures, from scalp, site appears well healed, Patient ec2 tolerated well. MDM: 18:05 Medical Screening Exam initiated ec2 18:14 Data reviewed: vital signs, nurses notes. ED course: I removed patient's 7 sutures ec2 without issue.. Administered Medications: No medications were administered Disposition Summary: 10/19/24 18:13 Discharge Ordered Notes: Location: Home ec2 Condition: Stable ec2 Diagnosis - Encounter for removal of sutures ec2 Followup: ec2 - With: Private Physician - When: - Reason: Re-evaluation by your physician Discharge Instructions: - Discharge Summary Sheet ec2 - Suture Removal, Care After ec2 Forms: - Work release form me1 - Medication Reconciliation Form ec2 - Antibiotic Education ec2 - Prescription Opioid Use ec2 - Patient Portal Instructions ec2 - Leadership Thank You Letter ec2 Signatures: Daija Mccauley RN RN aa5 Barry Lopez MD MD ec2
--- NOTE | 2024-10-19 18:13 | ER ---
Nurse's Notes [facility] Name: Janine Crook Age: 39 yrs Sex: Female : 1985 Arrival Date: 10/19/2024 Time: 17:56 Bed 16 Private MD: Diagnosis: Encounter for removal of sutures Presentation: 10/19 18:04 Chief complaint: Patient states: need for suture removal, reports sutures to back of aa5 head. Coronavirus screen: At this time, the client does not indicate any symptoms associated with coronavirus-19. Ebola Screen: Patient denies travel to an Ebola-affected area in the 21 days before illness onset. Initial Sepsis Screen: Does the patient meet any 2 criteria? No. Patient's initial sepsis screen is negative. Does the patient have a suspected source of infection? No. Patient's initial sepsis screen is negative. Risk Assessment: Do you want to hurt yourself or someone else? Patient reports no desire to harm self or others. Onset of symptoms was October 2024. 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 - Infectious Disease History:: Denies. - Social history:: Smoking status: Reported history of juuling and/or vaping. Screenin:16 [facility] ED Fall Risk Assessment (Adult) History of falling in the last 3 months, me1 including since admission No falls in past 3 months (0 pts) Confusion or Disorientation No (0 pts) Intoxicated or Sedated No (0 pts) Impaired Gait No (0 pts) Mobility Assist Device Used No (0 pt) Altered Elimination No (0 pt) Score/Fall Risk Level 0 - 2 = Low Risk Maintained a safe environment, Provided non-skid footwear, Hourly rounding (assess needs \T\ fall precautionary measures) done. Abuse screen: Denies threats or abuse. Nutritional screening: No deficits noted. Tuberculosis screening: No symptoms or risk factors identified. Assessment: 18:16 General: Appears comfortable, well developed, well nourished, Behavior is calm, me1 cooperative, appropriate for age. Pain: Denies pain. Neuro: Level of Consciousness is awake, alert, obeys commands, Oriented to person, place, time, situation, Appropriate for age. Cardiovascular: Patient's skin is warm and dry. Respiratory: Airway is patent Respiratory effort is even, unlabored, Respiratory pattern is regular, symmetrical. GI: No signs and/or symptoms were reported involving the gastrointestinal system. : No signs and/or symptoms were reported regarding the genitourinary system. EENT: No signs and/or symptoms were reported regarding the EENT system. Derm: Wound noted scalp Wound is healed with sutures. Musculoskeletal: No signs and/or symptoms reported regarding the musculoskeletal system. Vital Signs: 18:05 BP 127 / 86; Pulse 81; Resp 16 S; Temp 97.8(TE); Pulse Ox 100% on R/A; Weight 58.51 kg aa5 (R); Height 5 ft. 4 in. (R); 18:18 BP 124 / 87; Pulse 79; Resp 16; Temp 98.1; Pulse Ox 100% ; me1 18:05 Body Mass Index 22.14 (58.51 kg, 162.56 cm) aa5 ED Course: 17:57 Patient arrived in ED. im 17:58 Barry Lopez MD is Attending Physician. ec2 18:04 Triage completed. aa5 18:04 Arm band placed on. aa5 18:11 Cassia Meehan, ISABELLA is Primary Nurse. me1 18:16 Patient has correct armband on for positive identification. Bed in low position. Call me1 light in reach. Side rails up X 1. Provided Education on: POC. Verbalized understanding.. 18:16 No provider procedures requiring assistance completed. Patient did not have IV access me1 during this emergency room visit. Administered Medications: No medications were administered Medication: 18:16 VIS not applicable for this client. me1 Outcome: 18:13 Discharge ordered by . ec2 18:23 Discharged to home ambulatory, me1 18:23 Condition: stable 18:23 Discharge instructions given to patient, Instructed on discharge instructions, follow up and referral plans. Demonstrated understanding of instructions, follow-up care, 18:23 Patient left the ED. me1 Signatures: Daija Mccauley RN RN aa5 Sarah Mchugh Michelle, RN RN me1 Barry Lopez MD MD ec2 Corrections: (The following items were deleted from the chart) 18:16 18:04 Chief complaint: Patient states: need for suture removal, reports sutures to back me1 of head aa5
[2024-10-19 18:40] VITALS: O2SAT 100
[2024-10-19 18:45] VITALS: BP 124/87; TEMP 98.1
== END 2024-10-19 18:23 | disposition home or self-care (01) ==
LOC: ER 17:56
DX: Z48.02 Encounter for removal of sutures (principal)
CPT/HCPCS: 99283